=== PATIENT | female | born 1955 | race Caucasian/White ===

== ENCOUNTER 2018-08-11 09:03 | Outpatient (REF) | payer BC, SELFPAY ==
[2018-08-11 18:47] LABS: CREATININE 0.89 mg/dL (0.55-1.02)
== END 2018-08-11 09:23 ==
LOC: NCHCN 09:03
PROVIDERS: PCP Physician Assistant Medical; Visit Provider Nurse Practitioner Family
DX: Z01.818 Encounter for other preprocedural examination (principal)
CPT/HCPCS: 82565

== ENCOUNTER 2019-02-14 12:47 | Outpatient (REF) | payer BC, SELFPAY ==
[2019-02-14 19:30] LABS: ALT 33 U/L (12-78); AST 20 U/L (15-37); TSH 1.98 uIU/mL (0.358-3.74)
== END 2019-02-14 13:07 ==
LOC: NCHCN 12:47
PROVIDERS: PCP Physician Assistant Medical; Visit Provider Nurse Practitioner Family
DX: E03.9 Hypothyroidism, unspecified (principal); E78.5 Hyperlipidemia, unspecified
CPT/HCPCS: 84443; 84450; 84460

== ENCOUNTER 2019-02-16 09:46 | Outpatient (REF) | payer BC, SELFPAY ==
--- NOTE | 2019-02-16 08:45 | PAPFT_PTH ---
PATIENT: Amelie Devries LOC: [facility] U#:[id number] AGE/SX: 63/F ROOM: RE02/16/[address]: Charla Murillo NP : 1955 BED: DIS: 02/16/2019 SPEC #: [id number] RECD: 02/16/19 12:54 STATUS: NAHOMI PAULA #: [id number] GEORGE: 02/16/19 08:[address]: Charla Murillo NP DEPT: [facility] Cytology RECD BY: Kenyetta Ramírez ENTERED: 02/16/19 12:54 SP TYPE: PAPFT OTHR DR: Alicia Valentin Tissues: 1 - CX/ENDOCX FOR PAP SMEARS Procedures: PAP THIN PREP/UVM Screening HPV DNA PROBE Comments: [id number]
== END 2019-02-16 10:06 ==
LOC: LBN 09:46
PROVIDERS: PCP Physician Assistant Medical; Visit Provider Nurse Practitioner Women's Health
DX: Z12.4 Encounter for screening for malignant neoplasm of cervix (principal); Z11.51 Encounter for screening for human papillomavirus (HPV)
CPT/HCPCS: 88142; 87624

== ENCOUNTER 2019-03-09 00:25 | Outpatient (CLI) | payer BC, SELFPAY ==
--- NOTE | 2019-03-09 13:00 | DI.MAMMO_ITS ---
SYMPTOMS/DIAGNOSIS: SCREENING, Z12.31 MAMMOGRAMS: Mammograms were interpreted according to the usual protocol including computer analysis with CAD system, tomosynthesis and C view imaging. The breast tissue is of moderate radiodensity. There is no evidence of a mass. There are no suspicious calcifications and there has been no significant interval change when compared with prior images. SUMMARY: No evidence of malignancy, category 1. Yearly screening mammography is recommended. Breast density category B. SA ASSESSMENT OF FINDINGS: Negative. Category 1. Patient will receive a letter notifying them of these results. BI-RADS category B. There are scattered areas of fibroglandular density.
== END 2019-03-09 00:45 ==
PROVIDERS: PCP Physician Assistant Medical; Visit Provider Nurse Practitioner Women's Health
DX: Z12.31 Encounter for screening mammogram for malignant neoplasm of breast (principal)
CPT/HCPCS: 77063; 77067

== ENCOUNTER 2019-08-17 10:13 | Outpatient (REF) | payer MEDICARE, SELFPAY ==
[2019-08-17 19:23] LABS: ALT 132 U/L (14-59); AST 65 U/L (15-37)
[2019-08-17 19:54] LABS: Calculated LDL 85 mg/dL; Cholesterol 158 mg/dL (50-200); HDL Cholesterol 56 mg/dL (40-60); Triglyceride 89 mg/dL (30-150)
== END 2019-08-17 10:33 ==
LOC: NCHCO 10:13
PROVIDERS: PCP Physician Assistant Medical; Visit Provider Nurse Practitioner Family
DX: E78.5 Hyperlipidemia, unspecified (principal)
CPT/HCPCS: 80061; 84450; 84460

== ENCOUNTER 2021-04-01 17:02 | Outpatient (REF) | payer OTHER, SELFPAY ==
[2021-04-01 18:46] LABS: Hemoglobin A1C 5.8 % (<5.7)
[2021-04-01 18:52] LABS: ALT 45 U/L (14-59); AST 22 U/L (15-37); Albumin 3.8 g/dL (3.4-5.0); Alkaline Phosphatase 118 U/L (46-116); Anion Gap 9.7 mmol/L (3-11); BUN 15 mg/dL (7-18); Bilirubin, Total 0.3 mg/dL (0.2-1.0); CO2 26.3 mmol/L (21.0-32.0); CREATININE 0.9 mg/dL (0.55-1.02); Calcium 8.8 mg/dL (8.5-10.1); Calculated LDL 70 mg/dL (<100); Chloride 103 mmol/L (98-107); Cholesterol 155 mg/dL (<200); Glucose 97 mg/dL (74-106); HDL Cholesterol 48 mg/dL (40-60); Potassium 4.2 mmol/L (3.5-5.1); Sodium 139 mmol/L (136-145); TSH 0.94 uIU/mL (0.36-3.74); Total Protein 7.4 g/dL (6.4-8.2); Triglyceride 189 mg/dL (<150)
== END 2021-04-01 17:03 | disposition home or self-care (01) ==
LOC: NCHCN 17:02
PROVIDERS: Visit Provider Nurse Practitioner Family
DX: E03.9 Hypothyroidism, unspecified (principal); E78.5 Hyperlipidemia, unspecified; R73.03 Prediabetes
CPT/HCPCS: 80053; 80061; 83036; 84443

== ENCOUNTER 2022-04-07 18:29 | Outpatient (REF) | payer OTHER, SELFPAY ==
[2022-04-07 19:42] LABS: BUN 16 mg/dL (7-18); CREATININE 0.8 mg/dL (0.55-1.02); Calcium 9.1 mg/dL (8.5-10.1); Chloride 104 mmol/L (98-107); Glucose 84 mg/dL (74-106); Potassium 4.1 mmol/L (3.5-5.1); Sodium 138 mmol/L (136-145); TSH (W/Ref FT4) 2.09 uIU/mL (0.36-3.74)
== END 2022-04-07 18:30 | disposition home or self-care (01) ==
LOC: NCHCN 18:29
PROVIDERS: Visit Provider Nurse Practitioner Family
DX: E03.9 Hypothyroidism, unspecified (principal); E78.5 Hyperlipidemia, unspecified
CPT/HCPCS: 80048; 84443

== ENCOUNTER → 2022-04-16 01:20 | Outpatient (CLI) | payer OTHER, SELFPAY ==
--- NOTE | 2022-04-16 08:15 | DI.MAMMO_ITS ---
Exam(s) MAMMO SCREENING EXAM: MAMMO SCREENING CLINICAL HISTORY: screening,z12.39. TECHNIQUE: Bilateral full field digital CC and MLO mammographic images were obtained with 3D tomosyn thesis and utilizing computer aided detection (CAD). COMPARISON: Prior mammograms were reviewed, the most recent being February 2019. FINDINGS: There has been no significant change in the appearance and distribution of the fibroglandular tissue Asymmetric tissue in the left breast is unchanged from prior studies There are no new spiculated masses nor malignant appearing microcalcification groups. There is no significant architectural distortion nor skin thickening-retraction. IMPRESSION: No radiographic evidence of malignancy. BI-RADS Category 1 - Negative Breast Density - Category B - Scattered areas of fibroglandular density Breast density Category C or D implies that the patient has dense breast tissue. Dense breast tissue can make it harder to find cancer on a mammogram. Dense breast tissue is also associated with an incr eased risk of breast cancer. This information about the result of the mammogram report was provided to the patient to raise their awareness. Use this report when you speak with the patient about their risks for breast cancer, which includes their family history. At that time, you may recommend additional screening tests (Ultrasoun d or MRI) as these tests may add significant information. A negative radiographic report should not delay biopsy if a dominant or clinically suspicious mass is present. Up to ten percent of cancers are not identified on mammography. A negative report may reinforce clinical impression. Adenosis and dense breasts may obscure an underlying neoplasm. False positive reports average 6 to 10%. Patient will receive a letter notifying them of these results.
--- NOTE | 2022-04-16 08:15 | DI.US_ITS ---
Exam(s) US PELVIS TRANSVAGINAL EXAM: US PELVIS TRANSVAGINAL CLINICAL HISTORY: R sided pelvic pain,r10.2 TECHNIQUE: Ultrasound of the pelvis was performed both transabdominal and transvaginal. COMPARISON: US PELVIS TRANSVAG from 08/21/2014 FINDINGS: UTERUS: Retroflexed Measures 6 cm length x 4 cm AP x 4 cm wide. There are no uterine fibroids. Endometrial thickness measures 11.3 mm. This is abnormally thickened for this age group. There also appears to be possible 5 by millimeter polyp the endometrial cavity mid level. There is no fluid in the endometrial canal. CERVIX: There are no obvious nabothian cysts. RIGHT OVARY: Not able to be identified LEFT OVARY: Also not able to be identified CUL-DE-SAC: No free fluid evident. IMPRESSION: 1. Endometrium appears thickened this age group and contain possible polyp. Close follow-up recommen ded. 2. No abnormal adnexal findings. Both ovaries were not able to be identified on today's study 3. No free fluid evident in the adnexal regions and cul-de-sac. DATA REPOSITORY:
== END ==
PROVIDERS: Visit Provider Nurse Practitioner Women's Health
DX: Z12.31 Encounter for screening mammogram for malignant neoplasm of breast (principal); R10.2 Pelvic and perineal pain; R92.8 Other abnormal and inconclusive findings on diagnostic imaging of breast
CPT/HCPCS: 77063; 77067; 76830; 76856

== ENCOUNTER 2022-05-26 11:30 | Outpatient (REF) | payer OTHER, SELFPAY ==
--- NOTE | 2022-05-26 10:40 | ENDOMET_PTH ---
PATIENT: Amelie Devries LOC: [facility] U#:[id number] AGE/SX: 66/F ROOM: RE05/26/[address]: Hanh Molina DO : 1955 BED: DIS: 05/26/2022 SPEC #: [id number] RECD: 05/26/22 12:10 STATUS: SOUT REQ #: [id number] GEORGE: 05/26/22 10:[address]: Hanh Molina DEPT: Surgical Specimen RECD BY: Kenyetta Ramírez ENTERED: 05/26/22 12:10 SP TYPE: Endomet OTHR DR: Unknown,Unknown Tissues: 1 - ENDOMETRIUM BX/CURRETTE Procedures: GROSS AND MICRO LEVEL 4 Comments: [id number]
--- OUTSIDE RECORDS SUMMARY | 2022-05-26 11:33 | XMS_ITS | Encounter Summary ---
:1955 Author Organization [facility] Address [address] [place] [address] Care Team Providers Name Role Phone Gudelia Valentin PA-C Primary Care Provider Encounter Details Date Type Department Care Team Description 11/21/2014 Results Only [facility] Sabrina Singleton MD [phone] [place] [address] Social History Tobacco Use Types Packs/Day Years Used Date Never Assessed Sex Assigned at Date Recorded Not on file documented as of this encounter Plan of Treatment Not on filedocumented as of this encounter Procedures Procedure Name Priority Date/Time Associated Diagnosis Comme nts SURGICAL PATHOLOGY Routine 11/21/2014 18:26 Resul ts for this EST procedure are i n the results section. documented in this encounter Results SURGICAL PATHOLOGY (11/21/2014 18:26 EST) Pathology SURGICAL PATHOLOGY REPORT [facility] MEDICAL Report: Reports generated via electronic interface conta in original data; [facility] however they are lacking the format of the original re port. SERVICES Caution should be taken when reading/interpreting unfo rmatted reports. Name: ? SARAH STONE ? Accession #: ? [id number] ? : ? 1955 (Age: 59) ??F ? Collect Date: ? 11/21/2014 ? Location: ? [facility] ? Receive Date: ? 015 ? Provider: SABRINA SINGLETON MD Copy to: GUDELIA MARKS ? Final Pathologic Diagnosis: ENDOMETRIUM, POLYPECTOMY AND CURETTAGE: - Fragments of endometrial polyp, atrophic type. ??See comment. - Fragments of myometrium with features compatib le with submucosal leiomyoma. - Strips of inactive endometrium with tubal metaplasia . Comment: ? Coke Worker sectio ns of this case were reviewed at the intradepartmental consultation conference. ??No cytologic atypia is seen . Document reviewed and electronically signed by: HANDY PEDROZA MD Report ??Date: 11/26/2014 15:59 By the signature above, the attending physician certif ies that he/she has personally conducted a gross and/or microscopic examin ation of the described specimens and rendered or confirmed the above diagnosi s. Specimen(s) Received: Endometrial polyp and curettings Clinical History: Postmenopausal spotting, thickened EMS, scant atrophic EM on EM bx; EM polyp visualized on hysteroscopy; appeared irregular, bubbly , not smooth walled, highly vascular Gross Description: ? Received in formalin labelled with proper patient identification (initials H, M) and endometrial polyp and curettings is an aggregate of clotted blood and braun-pink tissue fragment s (4.0 x 2.5 x 0.5 cm). Submitted in toto in blocks 1-5. Alix Romero 11/22/2014 08:48 AM End of Report Specimen Performing Organization Address City/State/ZIP Code Phon e Number [facility] [address] [place] [address] SERVICES documented in this encounter Visit Diagnoses Not on filedocumented in this encounter Care Teams Hydraulics Engineer Relationship Specialty Start Date End Date Gudelia Valentin PA-C PCP - General 09/05/14 documented as of this encounter
--- OUTSIDE RECORDS SUMMARY | 2022-05-26 11:33 | XMS_ITS | Encounter Summary ---
:1955 Author Organization [facility] Address [address] [place] [address] Care Team Providers Name Role Phone Unavailable Primary Care Provider Unavailable Encounter Details Date Type Department Care Team Description 08/30/2014 Hospital Encounter [facility] Unknown, Provider, [facility] 0 [facility] [phone] [place] [address] (Work) [phone] Social History Tobacco Use Types Packs/Day Years Used Date Never Assessed Sex Assigned at Date Recorded Not on file documented as of this encounter Discharge Disposition Disposition Code Departure Means Destination Home or Self [facility]sp documented in this encounter Plan of Treatment Not on filedocumented as of this encounter Visit Diagnoses Not on filedocumented in this encounter
--- OUTSIDE RECORDS SUMMARY | 2022-05-26 11:33 | XMS_ITS | Encounter Summary ---
:1955 Author Organization [facility] Address [address] [place] [address] Care Team Providers Name Role Phone Ender Noble Primary Care Provider Encounter Details Date Type Department Care Team Description 08/13/2015 Surgery Gastroenterology at [facility] Julian Palacio, COLONOSCOPY FLEXIBLE, [facility] Mona valdes MD WITH BX (WRVU 3.66) [place] [address] [facility] [phone] GASTROENTEROLOGY DEPT. [place], [place] [address] Social History Tobacco Use Types Packs/Day Years Used Date Former Smoker Smokeless Tobacco: Never Used Alcohol Use Standard Drinks/Week Comments Yes 3 (1 standard drink = 0.6 oz pure alcoho l) Sex Assigned at Date Recorded Not on file documented as of this encounter Last Filed Vital Signs Vital Sign Reading Time Taken Comments Blood Pressure 100/56 08/13/2015 8:26 AM EDT Pulse 66 08/13/2015 8:26 AM EDT Temperature 36.4 ??C (97.5 ??F) 08/13/2015 7:18 AM EDT Respiratory Rate 16 08/13/2015 8:26 AM EDT Oxygen Saturation 93% 08/13/2015 8:26 AM EDT Inhaled Oxygen Concentration - - Weight 83.9 kg (185 lb) 08/13/2015 7:18 AM EDT Height - - Body Mass Index - - documented in this encounter Discharge Instructions Discharge InstructionsNatacha Land RN - 08/13/2015 8:27 AM EDT Colonoscopy What to expect after the procedure You may feel a little more gassy or bloated than usual. This is normal. You should expect the return of normal bowel function in the 2 to 3 days. Activity Because of the sedation that you received your judgement and reaction time are effected ?? Go home and rest quietly for the remainder of the day. You may resume your normal activities tomorrow. ?? Change from one position to the next slowly. You may lose your balance unexpectedly ?? Be careful on stairs, as you may be unsteady on your feet FOR THE NEXT 24 HRS ?? DO NOT DRIVE OR OPERATE ANY MACHINERY ?? DO NOT DRINK ALCOHOLIC BEVERAGES ?? DO NOT SIGN LEGAL DOCUMENTS ?? If you are a smoker: DO NOT SMOKE WHILE YOU ARE ALONE Diet ?? Start by eating small portions of foods that ordinarily will not upset your stomach . Avoid gas producing foods for the next few days ?? Be gentle with what you choose to start with ?? Drink plenty of fluids ( unless your doctor has told you not to). IV SITE-- slight redness, or tenderness is normal. You can use warm compresses if you become concerned. If the tenderness +/or redness increases or foul drainage and a red streak occurs, please contact your PCP immediately When shoud you call for help? Call 911 anytime you think you may need emergency care. For example If you pass out ( loss of consciousness) If you pass maroon or bloody stools If you have severe belly pain Call your doctor now or seek immediate medical care If your stools are black and tarlike If your stools have streaks of blood, but you did not have a biopsy or any polyps removed If you have belly pain, or your belly is swollen and firm If you vomit If you have a fever If you are very dizzy Watch closely for changes in your health, and be sure to contact your doctor if you have any problems Your doctor will let you know when you will need your next colonoscopy. The results of your test andyour risk for colorectal cancer will help your doctor decide how often you need to be checked. Wednesday-Wednesday Same Day Endo [phone] 7a-8p Otherwise contact [phone] and ask to speak to the spinner open end network operations manager Follow up care is a mcintyre part of your treatment and safety. Be sure to make and go to all appointments, and call your doctor if you are having problems. Discharge instructions reviewed with patient who expresses understanding Patient InstructionsJulian Palacio MD - 08/13/2015 8:16 AM EDT Please see Recommendations in the Provation procedure report which is documented in the procedural note in E-DH. documented in this encounter Medications at Time of Discharge Medication Sig Dispensed Refills Start Date End Date levothyroxine Take 88 mcg by mouth 0 (SYNTHROID) 88 mcg daily. Indications: TabletIndications: Hypothyroidism hypothyroidism aspirin 81 mg Tablet, Take 81 mg by mouth 0 ChewableIndications: daily. Indications: prevention of transient Prevention of Transient ischemic attack Ischemic Attacks ibuprofen (ADVIL;MOTRIN) Take 600 mg by mouth 0 200 mg every 6 hours as needed TabletIndications: pain for Pain. Indications: Pain SERTRALINE HCL (ZOLOFT 0 09/25/2009 ORAL) multivitamin capsule 0 09/25/2009 CALCIUM CITRATE ORAL 0 09/25/2009 documented as of this encounter H&P Notes Julian Palacio MD - 08/13/2015 7:51 AM EDT Gastroenterology and Hepatology Pre-Procedure History and Physical Exam Procedure: Colonoscopy: Indication: screening There is no problem list on file for this patient. EXAM: HEENT: Airway examined, oropharynx clear Mallampati Score: I (soft palate, uvula, fauces, tonsillar pillars visible) LUNGS: Clear to auscultation HEART: Regular rate and rhythm, normal S1, S2 ABDOMEN: Normal bowel sounds, soft, non tender, non distended, A/P Proceed with the planned endoscopic procedure. ASA 1 - Normal health patient Sedation Plan: moderate (conscious sedation) Risks and benefits of the procedure explained to the patient. Consent signed. documented in this encounter Plan of Treatment Not on filedocumented as of this encounter Procedures Procedure Name Priority Date/Time Associated Comments Diagnosis SURGICAL PATHOLOGY Routine 08/13/2015 8:18 AM Res ults for this REPORT EDT procedure are i n the results section. SPECIMEN TO PATHOLOGY Routine 08/13/2015 8:18 AM Results for this EDT procedure are i n the results section. COLONOSCOPY FLEXIBLE, 08/13/2015 7:56 AM Screening WITH BX (WRVU 3.66) EDT POCT GLUCOSE Routine 08/13/2015 7:38 AM Results f or this EDT procedure are i n the results section. COLONOSCOPY Routine 08/13/2015 7:17 AM Results f or this EDT procedure are i n the results section. documented in this encounter Results Surgical Pathology Report (08/13/2015 8:18 AM EDT) [facility] Method Time Signature Surgical The signing pathologist has (i) examined the relevant preparation(s) for the [facility] Pathology specimen(s) and (ii) rendered or confirmed the diagnosis(e s). [facility] Report Accession Number: [id number] ?Location: 4 T . ?Surgic al Pathology DIAGNOSIS A - Ileocecal valve, biopsies: - ??Ileal mucosa, negative for diagnostic abnormality. CR-0, CR-PX 08/13/15 DNT 08/15/15 Verified by: ? Real Horta MD ?Pathologist ?(Electronic Signature ) The attending pathologist whose signature appears on this re port has reviewed all diagnostic slides and has edited the gross and/ or microscopic portion of the report in jayde dering the final pathologic diagnosis. CLINICAL INFORMATION Specimen Submitted: A - Biopsies of ileocecal valve Clinical History: Nodular terminal ileum Clinical Diagnosis: Same SPECIMEN PROCESSING A - Labeled/Fixative: Biopsies of ileocecal valve, formalin. Quantity/Size: Three, ranging from 0.3-0.5 cm. Tissue Description: Soft, pink tissues. Sections/Processing: (T1) ??sns Specimen (Source) Anatomical Collection Method Collection Time Re ceived Time Location / / Volume Laterality 08/13/2015 8:18 AM EDT Julian Palacio MD PATHOLOGY/CYTOLOGY ORDERABLE S Performing Organization Address City/State/ZIP Code Phon e Number [address] [facility] Specimen to Pathology (surgical or derm) (08/13/2015 8:18 AM EDT) Specimen Anatomical Collection Method Collection Time Receive d Time (Source) Location / / Volume Laterality AP Specimen 08/13/2015 8:18 AM 201 5 8:18 EDT AM EDT Narrative CERNER MILLENNIUM - 08/13/2015 8:18 AM E DT Specimen requisition ordered. ??Separate Pathology report to follow Julian Palacio MD PATHOLOGY/CYTOLOGY ORDERABLE S Performing Organization Address City/[facility]/ZIP Code Phon e Number [address] [facility] POCT Glucose (08/13/2015 7:38 AM EDT) P athologist Signature POC Glucose 101 65 - 199 CERNER mg/dL [facility] Comment: Supplemental ranges: <140 mg/dL before meals <180 mg/dL all other times of the day Specimen Anatomical Collection Method Collection Time Receive d Time (Source) Location / / Volume Laterality Blood specimen 08/13/2015 7:38 AM 015 7:38 (specimen) EDT AM EDT Julian Palacio MD POINT OF CARE TEST ORDERABLE S Performing Organization Address City/[facility]/ZIP Code Phon e Number [address] C[facility] LOPEZENNIUM COLONOSCOPY (08/13/2015 7:17 AM EDT) Patholo gist Method Time Signature COLONOSCOPY [facility] Endoscopy Patient Name: Amelie Devries ? Procedure Date: 08/13/2015 7:17 AM ? Date of : 1955 ? Age: 60 ? Order #: [id number] ? Procedure: ? Colonoscopy Indications: ? Screening for colorectal malignant ? neoplasm Providers: ? Julian Palacio MD, Shazia menendez, ? LUCY, Clau Cordova Referring : ?SELINA Dalal Medicines: ? Midazolam 2 mg IV, Fentanyl 100 ? micrograms IV Complications: ? No immediate complications. Procedure: ? Pre-Anesthesia Assessment: ? - ASA Grade Assessment: I - A normal, ? healthy patient. ? - CV Examination: normal. ? - Mental Status Examination: alert ? and oriented. ? - Respiratory Examination: cl ear to ? auscultation. ? The procedure, indications, b enefits, ? risks and alternatives were e xplained ? to the patient. Specifically ? discussed were potential ? complications including, but not ? limited to, bleeding, perfora tion, ? infection, missing a cancer, and ? adverse medication reactions. The ? patient was placed in the lef t ? lateral decubitus position, a nd a ? digital rectal exam was perfo rmed. ? The Colonoscope was inserted in the ? anus and under direct visuali zation, ? advanced to the terminal ileu m. ? Careful inspection was made a s the ? colonoscope was withdrawn. Th e ? colonoscopy was performed wit hout ? difficulty. The patient wilber ated the ? procedure well. The quality o f the ? bowel preparation was excelle nt. ? Findings: ? The terminal ileum was somewhat nodular (probably ? normal variant). Several biopsies were obtained. ? The entire colon was normal including a retroflex ? view of the rectum. ? Impression: ?Normal colon. ? Nodular terminal ileum (proba murphy ? normal variant) Recommendation: ?- Await pathology results. ? Julian Palacio MD 08/13/2015 8:20 AM This report has been signed electronically. Number of Addenda: 0 Note Initiated On: 08/13/2015 7:17 AM Specimen (Source) Anatomical Collection Method Collection Time Re ceived Time Location / / Volume Laterality 08/13/2015 7:17 AM EDT Ender MARKS GENERAL SURGICAL ORDERABLES Performing Organization Address City/State/ZIP Code Phon e Number [facility] documented in this encounter Visit Diagnoses Not on filedocumented in this encounter Administered Medications Inactive Administered Medications - up to 3 most recent administrations Medication Order MAR Action Action Date Dose Rate Site fentaNYL 50 mcg/mL multi-dose Given 08/13/2015 8:00 AM EDT 100 m cg injection ONCE PRN, Starting on Wed08/13/15 at 0800, Until Wed08/13/15 at 0916, Intra-Operative (Intra-Procedure), Routine lactated ringers infusion New Bag 08/13/2015 7:49 AM EDT 100 mL/hr 100 mL/hr 100 mL/hr, Intravenous, CONTINUOUS, Starting on Wed08/13/15 at 0745, Until Wed08/13/15 at 0916, Endoscopy (Day of Procedure) midazolam (PF) (VERSED) 1 mg/mL multi-dose Given 08/13/2015 8:00 AM EDT 2 mg injection ONCE PRN, Starting on Wed08/13/15 at 0800, Until Wed08/13/15 at 0916, Intra-Operative (Intra-Procedure), Routine documented in this encounter Active and Recently Administered Medications Times are shown in EDT. Continuous Medication Order 08/11/2015 08/12/2015 08/13/2015 lactated ringers infusion (CANCELED) 0749 (New Bag - Provider: Natacha M Emery, RN) 100 mL/hr, at 100 mL/hr, Intravenous, CO NTINUOUS, Starting Wed08/13/15 at 0745, Until Wed08/13/15 at 0916, Endo (Day of Procedure) PRN Medication Order 08/11/2015 08/12/2015 08/13/2015 fentaNYL 50 mcg/mL multi-dose injection (CANCELED) 0800 (Given - Provider: Shazia Tellez, LUCY) ONCE PRN, Starting Wed08/13/15 at 0800, Until Wed08/13/15 at 0916, Intra- Operative (Intra-Procedure), Routine midazolam (PF) (VERSED) 1 mg/mL multi-dose injection (CANCELED) 0800 (Given - Provider: Shazia Tellez, LUCY) ONCE PRN, Starting Wed08/13/15 at 0800, Until Wed08/13/15 at 0916, Intra- Operative (Intra-Procedure), Routine documented in this encounter Care Teams Airport Maintenance Laborer Relationship Specialty Start Date End Date Ender Noble PA PCP - General 10/07/10 11/14/[address] [place] [address] documented as of this encounter
--- OUTSIDE RECORDS SUMMARY | 2022-05-26 11:33 | XMS_ITS | Encounter Summary ---
:1955 Author Organization [facility] Address [address] [place] [address] Care Team Providers Name Role Phone Unavailable Primary Care Provider Unavailable Encounter Details Date Type Department Care Team Description 06/18/2009 Orders Only [facility] Donato Gann, CATARINO Services - Imelda Montes [address] [address] Social History Tobacco Use Types Packs/Day Years Used Date Never Assessed Sex Assigned at Date Recorded Not on file documented as of this encounter Plan of Treatment Not on filedocumented as of this encounter Procedures Procedure Name Priority Date/Time Associated Comments Diagnosis HPV DETECTION, HIGH Routine 06/18/2009 10:00 Resu lts for this RISK TYPES EDT procedure are i n the results section. CYTOPATHOLOGY Routine 06/18/2009 0:00 Results for this EDT procedure are i n the results section. documented in this encounter Results HUMAN PAPILLOMA VIRUS DNA TEST (06/18/2009 10:00 EDT) Specimen Description Cervix, ThinPrep [facility] vial Result Negative for HPV [facility] types 16, 18, 31, 33, 35, 39, 45, 51, 52, 56, 58, 59, and 68. Report Status Final [facility] 06/26/2009 Specimen Performing Organization Address City/State/ZIP Code Phon e Number [facility] [address] [place] [address] SERVICES [facility] [address] [place] [address] CYTOPATHOLOGY (06/18/2009 0:00 EDT) Pathology Report: CYTOPATHOLOGY REPORT ? [facility] ? [facility] Reports generated via electr onic interface contain original data; ? however they are lacking the format of the original report. ? Caution should be taken when reading/interpreting unformatted reports. ? Name: ? SARAH STONE ? Accession #: ? [id number] ? : ? 1955 (Age: 53) ??F ?Collect Date: ? 06/18/2009 ? Location: ? [facility] ? Receive Date: ? 06/18/2009 ? Provider: ?DONA M RO WLETT GLASS FRAME FITTER ? Copy to: ? Specimen/Source: ? Pap Test, Cervix/Endocervix, ThinPrep Imaging System ? with manual evaluation ? Last Menstrual Period: ? 02/05 ? Hormonal/Contraceptive Statu s: ? Tubal ligation ? Other: ? HPVDX - HPV testing requeste d regardless of diagnosis on current ThinPrep Pap ?? test. ? SPECIMEN ADEQUACY ? Satisfactory for Eval uation ? - transformation zone compon ent present ? GENERAL CATEGORIZATION ? Negative for Intraepi thelial Lesion or Malignancy ? Document reviewed and electr onically signed by: ? Renee Verville,CT(ASCP) ? Report Date: ??08/06/ 2009 09:04 ? End of Report ? Specimen Performing Organization Address City/State/ZIP Code Phon e Number [facility] [address] [place] [address] SERVICES [facility] [address] [place] [address] documented in this encounter Visit Diagnoses Not on filedocumented in this encounter
--- OUTSIDE RECORDS SUMMARY | 2022-05-26 11:33 | XMS_ITS | Encounter Summary ---
:1955 Author Organization [facility] [place] [address] Care Team Providers Name Role Phone Ender Noble Primary Care Provider Encounter Details Date Type Department Care Team Description 08/13/2015 Hospital Encounter Gastroenterology at [facility] Benny Slaughter MD [facility] [place] [address] [facility] Julian Real MD [facility] [place] [address] [place] [address] Social History Tobacco Use Types Packs/Day Years [...] to be checked. Wednesday-Wednesday Same Day Endo [phone] Otherwise contact [phone] and ask to speak to the clay artisan pci security consultant Follow up care is a mcintyre part [...] Surgical Pathology Report (08/13/2015 8:18 AM EDT) [facility] Method Time Signature Surgical The signing pathologist has (i) examined the relevant preparation(s) for the [facility] Pathology specimen(s) and (ii) rendered or confirmed the diagnosis(e s). [facility] Report Accession Number: [id number] ?Location: 4 T . ?Surgic al Pathology [...] MD PATHOLOGY/CYTOLOGY ORDERABLE S Performing Organization Address City/[facility]/ZIP [place] [address] CERNER MILLENNIUM Specimen to Pathology (surgical or derm) (08/13/2015 8:18 AM EDT) Specimen Anatomical Collection Method Collection Time Receive d Time (Source) Location / / Volume Laterality AP Specimen 08/13/2015 8:18 AM 201 5 8:18 EDT AM EDT Narrative CERNER MILLENNIUM - 08/13/2015 8:18 AM E DT Specimen requisition ordered. ??Separate Pathology report to follow Julian Palacio MD PATHOLOGY/CYTOLOGY ORDERABLE S Performing Organization Address City/[facility]/ZIP [place] [address] CERNER MILLENNIUM POCT Glucose (08/13/2015 7:38 AM EDT) P athologist Signature POC Glucose 101 65 - 199 CERNER mg/dL [facility] Comment: Supplemental ranges: <140 mg/dL before meals <180 mg/dL all other times of the day Specimen Anatomical Collection Method Collection Time Receive d Time (Source) Location / / Volume Laterality Blood specimen 08/13/2015 7:38 AM 015 7:38 (specimen) EDT AM EDT Julian Palacio MD POINT OF CARE TEST ORDERABLE S Performing Organization Address City/State/ZIP [place] [address] CERNER MILLENNIUM COLONOSCOPY (08/13/2015 7:17 AM EDT) Patholo gist Method Time Signature COLONOSCOPY [facility] Endoscopy Patient Name: Amelie Devries ? Procedure Date: 08/13/2015 7:17 AM ? Date of : 1955 ? Age: 60 ? Order #: [id number] ? Procedure: ? Colonoscopy Indications: ? Screening [...] withdrawn. Th e ? colonoscopy was performed ally orosco ? difficulty. The patient wilber ated the [...] MAR Action Action Date Dose Rate Site lactated ringers infusion New Bag 08/13/2015 7:49 AM EDT 100 mL/hr 100 mL/hr 100 mL/hr, Intravenous, CONTINUOUS, Starting on Wed08/13/15 at 0745, Until Wed08/13/15 at 0916, Endoscopy (Day of Procedure) documented in this encounter Active and Recently Administered Medications Times are shown in EDT. Continuous Medication Order 08/11/2015 08/12/2015 08/13/2015 lactated ringers infusion (CANCELED) 0749 (New Bag - Provider: Natacha Land RN) 100 mL/hr, at 100 mL/hr, Intravenous, CO NTINUOUS, Starting e 08/13/15 at 0745, Until Wed08/13/15 at 0916, Endo (Day of Procedure) PRN Medication Order 08/11/2015 08/12/2015 08/13/2015 fentaNYL 50 mcg/mL multi-dose injection (CANCELED) 0800 (Given - Provider: Shazia L Fadden, RN) ONCE PRN, Starting Wed08/13/15 at 0800, Until Wed08/13/15 at 0916, Intra- Operative (Intra-Procedure), Routine midazolam (PF) (VERSED) 1 mg/mL multi-dose injection (CANCELED) 0800 (Given - Provider: Shazia Tellez RN) ONCE PRN, Starting Wed08/13/15 at 0800, Until Wed08/13/15 at 0916, Intra- Operative (Intra-Procedure), Routine documented in this encounter Care Teams Electric Stove Installer Relationship Specialty Start Date End Date Ender Noble PA PCP - General 10/07/10 11/14/[address] [place] [id number] documented as of this encounter
--- OUTSIDE RECORDS SUMMARY | 2022-05-26 11:33 | XMS_ITS | Encounter Summary ---
:1955 Author Organization [facility] Address [address] [place] [address] Care Team Providers Name Role Phone Alicia Valentin PA-C Primary Care Provider Encounter Details Date Type Department Care Team Description 01/07/2017 Results Only [facility] Sabrina Singleton MD [phone] [place] [address] Social History Tobacco Use Types Packs/Day Years Used Date Never Assessed Sex Assigned at Date Recorded Not on file documented as of this encounter Plan of Treatment Not on filedocumented as of this encounter Procedures Procedure Name Priority Date/Time Associated Diagnosis Comme [facility] SURGICAL PATHOLOGY Routine 01/07/2017 9:02 EST Re sults for this procedure are i n the results section. documented in this encounter Results SURGICAL PATHOLOGY (01/07/2017 9:02 EST) Pathology Report: SURGICAL PATHOLOGY REPORT [facility] Reports generated via electronic interface conta in original data; [facility] however they are lacking the format of the original re port. SERVICES Caution should be taken when reading/interpreting unfo rmatted reports. Name: ? SARAH STONE ? Accession #: ? [id number] ? : ? 1955 (Age: [age]) ??F ? Collect Date: ? 01/07/2017 ? Location: ? [facility] ? Receive Date: ? 01/08/20 17 ? Provider: SABRINA SINGLETON MD Copy to: RICKI GARCIA SCHOOL CUSTODIAN ? Final Pathologic Diagnosis: SKIN OF BREAST, LEFT LOWER, JUST BELOW AREOLA, BIOPSY: - Superficial portion of skin with dermal inflammation . ??See comment. Comment: Numerous sections of the biopsy were reviewed. ? ?Near the base of the biopsy, toward one edge, there is dermal hypercellularity cons isting primarily of chronic inflammation. ??Rare multinucleate giant cells are present. ??No foreign material is identified. ??The inflammation is not pres ent on the deepest sections. ??The feature are relatively non-specific. ??Inflammation secondary to a folliculitis or ruptured follicle is a consideration. ??However, a specific diagnosis is precluded by the superficia l nature of the biopsy. (Dr. Trejo)/[facility] Microscopic Description: Sections consist of an irreg ular superficial portion of skin to the superficial reticular dermis. ??The epid ermis is generally unremarkable. ??Near the base of the biopsy, toward one edge, there is hypercellularity within the dermis. ??The hypercellularity includes sp indle cells in addition to inflammatory cells. ??The latter appear to be primaril y lymphocytes, histiocytes, and a few plasma cells. Rare multinucleate giant cells are present. ??Ad ditional deeper sections show similar features. (Dr. Trejo)/mpl Document reviewed and electronically signed by: CHRIS TREJO MD Report ??Date: 01/11/2017 17:33 By the signature above, the attending physician certif ies that he/she has personally conducted a gross and/or microscopic examin ation of the described specimens and rendered or confirmed the above diagnosi s. Specimen(s) Received: Skin punch biopsy Clinical History: Persistent erythematous area on lower L breast just be low areola Gross Description: ? Received in formalin labelled with proper patient identification (initials H, M) and L breast tissue biopsy is a shave bi opsy of braun-white skin (0.4 x 0.2 x 0.1 cm). There is a central circul ar braun-pink papule that measures 0.1 x 0.1 x less than 0.1 cm. The specimen is submitted inta ct in 1. Yudy Chavarria 01/08/2017 11:03 AM End of Report Specimen Performing Organization Address City/State/ZIP Code Phon e Number [facility] [address] [place] [address] SERVICES documented in this encounter Visit Diagnoses Not on filedocumented in this encounter Care Teams Medart Operator Relationship Specialty Start Date End Date Alicia Valentin PA-C PCP - General 09/05/14 documented as of this encounter
--- OUTSIDE RECORDS SUMMARY | 2022-05-26 11:33 | XMS_ITS | Encounter Summary ---
:1955 Author Organization [facility] Address [address] [place] [address] Care Team Providers Name Role Phone Unavailable Primary Care Provider Unavailable Encounter Details Date Type Department Care Team Description 10/13/2001 Results Only [facility] - Merlene Yost NP conversion [address] [place] [address] Social History Tobacco Use Types Packs/Day Years Used Date Never Assessed Sex Assigned at Date Recorded Not on file documented as of this encounter Plan of Treatment Not on filedocumented as of this encounter Procedures Procedure Name Priority Date/Time Associated Diagnosis Comme [facility] CYTOPATHOLOGY Routine 10/13/2001 0:00 EST Results for this procedure are i n the results section . documented in this encounter Results CYTOPATHOLOGY (10/13/2001 0:00 EST) Pathology Report: CYTOPATHOLOGY REPORT [facility] Reports generated via electronic interface contain lulu ginal data; however they are lacking the format of the original re port. Caution should be taken when reading/interpreting unfo rmatted reports. Name: ? SARAH STONE ? Accession #: ? [id number] : ? 1955 (Age: 46) ??F ?Collect Date: ? 09/16 Location: ? [facility] ? Receive Date : ? 10/17/2001 Provider: ?MERLENE GRANADO SURGICAL ONCOLOGIST Copy to: ? Specimen/Source: ?ThinPrep Pap Test, Cervix/ Endocervix Last Menstrual Period: ? Other: ? Additional clinical information: Lichen sclerosis and atrophy. ? SPECIMEN ADEQUACY ? Satisfactory for evaluation. GENERAL CATEGORIZATION ? Within Normal Limits ? Document reviewed and electronically signed by: ? CAROL Mcrae(ASCP) ? Report Date: ??10/20/2001 07:46 End of Report Specimen Performing Organization Address City/State/ZIP Code Phon e Number [facility] [address] [place] [phone] SERVICES [facility] [address] [place] [address] documented in this encounter Visit Diagnoses Not on filedocumented in this encounter
--- OUTSIDE RECORDS SUMMARY | 2022-05-26 11:33 | XMS_ITS | Encounter Summary ---
:1955 Author Organization [facility] Address [address] [place] [address] Care Team Providers Name Role Phone Unavailable Primary Care Provider Unavailable Encounter Details Date Type Department Care Team Description 03/19/2004 Results Only [facility] - Merlene Yost NP conversion [address] [place] [address] Social History Tobacco Use Types Packs/Day Years Used Date Never Assessed Sex Assigned at Date Recorded Not on file documented as of this encounter Plan of Treatment Not on filedocumented as of this encounter Procedures Procedure Name Priority Date/Time Associated Diagnosis Comme nts CYTOPATHOLOGY Routine 03/19/2004 0:00 EDT Results for this procedure are i n the results section . documented in this encounter Results CYTOPATHOLOGY (03/19/2004 0:00 EDT) Pathology Report: CYTOPATHOLOGY REPORT [facility] Reports generated via electronic interface contain lulu ginal data; however they are lacking the format of the original re port. Caution should be taken when reading/interpreting unfo rmatted reports. Name: ? SARAH STONE ? Accession #: ? [id number] : ? 1955 (Age: 48) ??F ?Collect Date: ? 03/2004 Location: ? [facility] ? Receive Date : ? 03/20/2004 Provider: ?MERLENE GRANADO THREAD TRIMMER Copy to: ? Specimen/Source: ?ThinPrep Pap Test, Cervix/ Endocervix Last Menstrual Period: ? 07/18 Other: ? Additional clinical information: Lichen sclerosis, atr ophy ? SPECIMEN ADEQUACY ? Satisfactory for Evaluation - transformation zone component present GENERAL CATEGORIZATION ? Negative for Intraepithelial Lesion or Malignan cy ? Document reviewed and electronically signed by: ? CAROL Robles(ASCP) ? Report Date: ??03/26/2004 09:49 End of Report Specimen Performing Organization Address City/State/ZIP Code Phon e Number [facility] [address] [place] [address] SERVICES [facility] [address] [place] [address] documented in this encounter Visit Diagnoses Not on filedocumented in this encounter
--- OUTSIDE RECORDS SUMMARY | 2022-05-26 11:33 | XMS_ITS | Encounter Summary ---
:1955 Author Organization [facility] Address [address] [place] [address] Care Team Providers Name Role Phone Unavailable Primary Care Provider Unavailable Encounter Details Date Type Department Care Team Description 10/19/2002 Results Only [facility] - Merlene Yost NP conversion [address] [place] [address] Social History Tobacco Use Types Packs/Day Years Used Date Never Assessed Sex Assigned at Date Recorded Not on file documented as of this encounter Plan of Treatment Not on filedocumented as of this encounter Procedures Procedure Name Priority Date/Time Associated Diagnosis Comme [facility] CYTOPATHOLOGY Routine 10/19/2002 0:00 EST Results for this procedure are i n the results section . documented in this encounter Results CYTOPATHOLOGY (10/19/2002 0:00 EST) Pathology Report: CYTOPATHOLOGY REPORT [facility] Reports generated via electronic interface contain lulu ginal data; however they are lacking the format of the original re port. Caution should be taken when reading/interpreting unfo rmatted reports. Name: ? SARAH STONE ? Accession #: ? [id number] : ? 1955 (Age: 47) ??F ?Collect Date: ? 03/2002 Location: ? [facility] ? Receive Date : ? 10/23/2002 Provider: ?MERLENE GRANADO DRAGLINE OILER Copy to: ? Specimen/Source: ?ThinPrep Pap Test, Cervix/ Endocervix Last Menstrual Period: ? 08/29/02 Other: ? Additional clinical information: lichen sclerosis & at rophy ? SPECIMEN ADEQUACY ? Satisfactory for Evaluation - transformation zone component present - scant squamous epithelial component secondary to exc essive mucus GENERAL CATEGORIZATION ? Negative for Intraepithelial Lesion or Malignan cy ? Document reviewed and electronically signed by: ? CAROL Valenzuela(ASCP) ? Report Date: ??10/25/2002 09:15 End of Report Specimen Performing Organization Address City/State/ZIP Code Phon e Number [facility] [address] [place] [address] SERVICES [facility] [address] [place] [address] documented in this encounter Visit Diagnoses Not on filedocumented in this encounter
--- OUTSIDE RECORDS SUMMARY | 2022-05-26 11:33 | XMS_ITS | Clinical Summary ---
:1955 Author Organization [facility] [place] [address] Care Team Providers Name Role Phone Unknown Primary Care Provider Unavailable Allergies Active Allergy Reactions Severity Noted Date Comments Cat/Feline Products CIS - BR EATHING PROBLEMS Cis Free Text Allergy FEATHE RS. CIS - BREATHING PROBLEMS House Dust CIS - BREATHING PROBLEMS Mold Extracts CIS - BREATHIN G PROBLEMS Pollen Extracts CIS - BREATH ING PROBLEMS Pollen, Micronized CIS - ARAM ATHING PROBLEMS Pollen,Fermented CIS - BREAT KALEB PROBLEMS Medications Medication Sig Dispensed Refills Start Date End Date Status SERTRALINE HCL 0 09/25/2009 Acti ve (ZOLOFT ORAL) multivitamin capsule 0 09/25/2009 Active CALCIUM CITRATE ORAL 0 09/25/2009 Active levothyroxine Take 88 mcg by mouth 0 Active (SYNTHROID) 88 mcg daily. Indications: TabletIndications: Hypothyroidism hypothyroidism aspirin 81 mg Take 81 mg by mouth 0 Active Tablet, daily. Indications: ChewableIndications: Prevention of prevention of Transient Ischemic transient ischemic Attacks attack ibuprofen Take 600 mg by mouth 0 Active (ADVIL;MOTRIN) 200 every 6 hours as mg needed for Pain. TabletIndications: Indications: Pain pain Social History Tobacco Use Types Packs/Day Years Used Date Former Smoker Smokeless Tobacco: Never Used Alcohol Use Standard Drinks/Week Comments Yes 3 (1 standard drink = 0.6 oz pure alcoho l) Sex Assigned at Date Recorded Not on file Last Filed Vital Signs Vital Sign Reading [...] - - Body Mass Index - - Plan of Treatment Health Maintenance Due Date Last Done Comments Covid-19 Vaccine (#1) 1959 Hepatitis C Screening 1972 Tdap adult 1973 Tetanus vaccine 1973 Breast Cancer Share Decision Needed 1994 Breast Cancer screening 2004 Zoster vaccine (1 of 2) 2004 Advance Directive 2009 Bone Density Scan 2019 Pneumoccocal Vaccine: 65+ (1 - PCV) 2019 Influenza (Flu) vaccine (1 of 1 - 07/16/2022 Influenza standard series) Colonoscopy 08/13/2025 08/13/2015, 08/13/2015 Care Teams Grab Operator Relationship Specialty Start Date End Date Unknown PCP - General 11/15/19 None
--- OUTSIDE RECORDS SUMMARY | 2022-05-26 11:33 | XMS_ITS | Encounter Summary ---
:1955 Author Organization [facility] Address [address] [place] [address] Care Team Providers Name Role Phone Unavailable Primary Care Provider Unavailable Encounter Details Date Type Department Care Team Description 05/06/2005 Results Only [facility] - Ileana Burt od, CLINICAL RESEARCH ANALYST [address] [place] [phone] (Wo rk) Social History Tobacco Use Types Packs/Day Years Used Date Never Assessed Sex Assigned at Date Recorded Not on file documented as of this encounter Plan of Treatment Not on filedocumented as of this encounter Procedures Procedure Name Priority Date/Time Associated Diagnosis Comme nts CYTOPATHOLOGY Routine 05/06/2005 0:00 EDT Results for this procedure are i n the results section . documented in this encounter Results CYTOPATHOLOGY (05/06/2005 0:00 EDT) Pathology Report: CYTOPATHOLOGY REPORT [facility] Reports generated via electronic interface contain lulu ginal data; however they are lacking the format of the original re port. Caution should be taken when reading/interpreting unfo rmatted reports. Name: ? SARAH STONE ? Accession #: ? [id number] : ? 1955 (Age: 49) ??F ?Collect Date: ? 04/16 Location: ? [facility] ? Receive Date : ? 05/08/2005 Provider: ?ILEANA DON CLINICAL RESEARCH ANALYST Copy to: ? [facility] ?[address] ?[place], [place] [address] ? Specimen/Source: ?ThinPrep Pap Test, Cervix/ Endocervix Last Menstrual Period: ? 2003 Other: ? Additional clinical information: Lichen sclerosis, atr ophy. HPVA - HPV testing requested if ASC-US on the current ThinPrep Pap test. ? SPECIMEN ADEQUACY ? Satisfactory for Evaluation - transformation zone component present GENERAL CATEGORIZATION ? Negative for Intraepithelial Lesion or Malignan cy ? Document reviewed and electronically signed by: ? CAROL Mcrae(ASCP) ? Report Date: ??05/14/2005 09:20 End of Report Specimen Performing Organization Address City/State/ZIP Code Phon e Number [facility] [address] [place] [address] SERVICES [facility] [address] [place] [address] documented in this encounter Visit Diagnoses Not on filedocumented in this encounter
--- OUTSIDE RECORDS SUMMARY | 2022-05-26 11:33 | XMS_ITS | Clinical Summary ---
:1955 Author Organization [facility] Address [address] [place] [address] Care Team Providers Name Role Phone Alicia Valentin PA-C Primary Care Provider Social History Tobacco Use Types Packs/Day Years Used Date Never Assessed Sex Assigned at Date Recorded Not on file Plan of Treatment Health Maintenance Due Date Last Done Comments Fall Risk Screening 2019 Care Teams Industrial Relations Manager Relationship Specialty Start Date End Date Alicia Valentin PA-C PCP - General 09/05/14
--- OUTSIDE RECORDS SUMMARY | 2022-05-26 11:33 | XMS_ITS | Encounter Summary ---
:1955 Author Organization [facility] Address [address] [place] [address] Care Team Providers Name Role Phone Alicia Valentin PA-C Primary Care Provider Encounter Details Date Type Department Care Team Description 08/28/2015 Results Only [facility]- [facility] Sabrina Singleton MD [phone] [place] [address] Social History Tobacco Use Types Packs/Day Years Used Date Never Assessed Sex Assigned at Date Recorded Not on file documented as of this encounter Plan of Treatment Not on filedocumented as of this encounter Procedures Procedure Name Priority Date/Time Associated Diagnosis Comme nts PAP TEST- RESULT Routine 08/28/2015 0:00 EDT Resu lts for this ONLY procedure are i n the results section. documented in this encounter Results PAP TEST- RESULT ONLY (08/28/2015 0:00 EDT) Pathology Report: CYTOPATHOLOGY REPORT [facility] Reports generated via electronic interface contain lulu ginal data; SERVICES however they are lacking the format of the original re port. Caution should be taken when reading/interpreting unfo rmatted reports. Name: ? SARAH STONE ? Accession #: ? [id number] ? : ? 1955 (Age: [age]) ??F ?Collect Da te: ? 08/28/2015 ? Location: ? [facility] ? Receive Date: ? 015 ? Provider: SABRINA SINGLETON MD Copy to: ? Final Report SPECIMEN ADEQUACY ? Satisfactory for Evaluation - transformation zone component present GENERAL CATEGORIZATION ? Negative for Intraepithelial Lesion or Malignan cy ?? Specimen/Source: ??Pap Test, Cervix/Endocervix, ThinPr ep Imaging System with manual evaluation Document reviewed and electronically signed by: ? Evelia Waters, CT(ASCP) ? Report ??Date: 09/04/2015 10:19 HPV with Pap Test ? Date Ordered: ? 09/04/2015 ? Status: ?? Signed Out ?Date Complete: ? 09/13/2015 ? By: ??S ystem Interface ? Date Reported: ? 09/13/2015 ? Interpretation RESULT: Negative for HPV. No E6 or E7 mRNA is detected from HPV types 16,18,31,3 3,35, 39,45,51,52,56,58,59,66, and 68 by software developer intern media marisol amplification. Comments Document reviewed and electronically signed by: ? System Interface ? Report date: 09/13/2015 By the signature above, the attending physician certif ies that he/she has personally conducted a gross and/or microscopic examin ation of the described specimens and rendered or confirmed the above diagnosi s. End of Report Specimen Performing Organization Address City/State/ZIP Code Phon e Number [facility] [address] [place] [address] SERVICES documented in this encounter Visit Diagnoses Not on filedocumented in this encounter Care Teams Vertica Architect Relationship Specialty Start Date End Date Alicia Valentin, DEBRA PCP - General 09/05/14 documented as of this encounter
--- OUTSIDE RECORDS SUMMARY | 2022-05-26 11:33 | XMS_ITS | Encounter Summary ---
:1955 Author Organization [facility] Address [address] [place] [address] Care Team Providers Name Role Phone Alicia Valentin PA-C Primary Care Provider Encounter Details Date Type Department Care Team Description 04/29/2020 Lab Requisition [facility] Outr Resulting Lab, Pathology & Laboratory Provider [facility] [address] [place] [address] Social History Tobacco Use Types Packs/Day Years Used Date Never Assessed Sex Assigned at Date Recorded Not on file documented as of this encounter Plan of Treatment Not on filedocumented as of this encounter Procedures Procedure Name Priority Date/Time Associated Comments Diagnosis DO NOT ORDER Today 04/29/2020 10:35 Results for this STANDALONE - BROAD EDT procedure are in COVID TEST the results section. COVID-19 TESTING Routine 04/29/2020 10:35 Results for this EDT procedure are i n the results section. documented in this encounter Results DO NOT ORDER STANDALONE - BROAD COVID TEST (04/29/2020 10:35 EDT) COVID-19 rt-PCR NEGATIVE Negative [facility] Result Comment: LABORATORY 2019-novel Coronavirus (2019 -nCoV) not detected by the qRT-PCR assay. Consider testing for other respiratory viruses or re-collecting for 2019-nCoV testing. Note: Optimum timing for peak viral levels du ring infections caused by 20 -nCoV have not been determined. Collection of multiple specimens from the same patient may be necessary to detect the virus. Limitations Positive results are indicat hasmukh of active infection with SARS-CoV-2 but do not rule out bacterial infection or co-infection with other viruses. The agent detected may not be the definite cause of diseas e. In addition, detection of viral RNA may not indicate the presence of infectious virus or that SARS-CoV-2 is the causative agent for clinical symptoms. Negative results do not prec lude SARS-CoV-2 infection and should not be used as the sole basis for patient management decisions. Negative results must be combined with clinical observations, patient his tory, and epidemiological in formation. False negative results may also occur if amplification inhibitors are present in the specimen or if inadequate numbers of organisms are present in the specimen. Op timum specimen types and cash ing for peak viral levels during infections caused by SARS-CoV-2 have not been fully determined. Collection of multiple specimens (types and time points) from the same patient may be necessary to detect the virus. The test was validated for u se with upper respiratory specimens obtained via nasopharyngeal or oropharyngeal swabs in VTM, UTM, M4, M5, M6, saline, and MTM media. The performance of this test has not be en established for other spe cimens. Specimens collected using other FDA recommended Specimen Collection Materials listed in the FDA COVID-19 Diagnostic [employer] communication (February 08, 2020) are pr ocessed with the caveat that they were not all validated for use with this test and the result must be interpreted in this context. Furthermore, a false negative results may occur if a specimen is improperly collected, transported or handled. If the virus mutates in the RT-PCR target region, SARS-CoV-2 may not be detected or may be detected less predictably. Inhibitors or other types of interference may produce a false negative result. An interference study evaluating the effect of common cold medications was not performed. This test is not FDA-cleared but its performance characteristics were established by our CLIA-certified, CAP-accredited, high complexity laboratory in accordance with CLIA regulations, [employer] [place] an Pathologists (CAP) guidel dominique (Feb 01, 2020), and FDA guidance (Jan 13, 2020). This test is only for use un angel the Food and Drug Administration's Emergency Use Authorization. Specimen Swab - Entire nasopharynx (body structur e) Performing Organization Address City/State/ZIP Code Phon e Number [facility] [place], [place] COVID-19 TESTING (04/29/2020 10:35 EDT) COVID-19 rt-PCR NEGATIVE Negative [facility] Result Comment: LABORATORY 2019-novel Coronavirus (2019 -nCoV) not detected by the qRT-PCR assay. Consider testing for other respiratory viruses or re-collecting for 2019-nCoV testing. Note: Optimum timing for peak viral levels du ring infections caused by 20 -nCoV have not been determined. Collection of multiple specimens from the same patient may be necessary to detect the virus. Limitations Positive results are indicat hasmukh of active infection with SARS-CoV-2 but do not rule out bacterial infection or co-infection with other viruses. The agent detected may not be the definite cause of diseas e. In addition, detection of viral RNA may not indicate the presence of infectious virus or that SARS-CoV-2 is the causative agent for clinical symptoms. Negative results do not prec lude SARS-CoV-2 infection and should not be used as the sole basis for patient management decisions. Negative results must be combined with clinical observations, patient his tory, and epidemiological in formation. False negative results may also occur if amplification inhibitors are present in the specimen or if inadequate numbers of organisms are present in the specimen. Op timum specimen types and cash ing for peak viral levels during infections caused by SARS-CoV-2 have not been fully determined. Collection of multiple specimens (types and time points) from the same patient may be necessary to detect the virus. The test was validated for u with upper respiratory specimens obtained via nasopharyngeal or oropharyngeal swabs in VTM, UTM, M4, M5, M6, saline, and MTM media. The performance of this test has not be en established for other spe cimens. Specimens collected using other FDA recommended Specimen Collection Materials listed in the FDA COVID-19 [employer] communication (February 08, 2020) are pr ocessed with the caveat that they were not all validated for use with this test and the result must be interpreted in this context. Furthermore, a false negative results may occur if a specimen is improperly collected, transported or handled. If the virus mutates in the RT-PCR target region, SARS-CoV-2 may not be detected or may be detected less predictably. Inhibitors or other types of interference may produce a false negative result. An interference study evaluating the effect of common cold medications was not performed. This test is not FDA-cleared but its performance characteristics were established by our CLIA-certified, CAP-accredited, high complexity laboratory in accordance with CLIA regulations, [employer] of [facility] an Pathologists (CAP) guidel dominique (Feb 01, 2020), and FDA guidance (Jan 13, 2020). This test is only for use un angel the Food and Drug Administration's Emergency Use Authorization. Performing Lab [facility] SERVICES Specimen Swab - Entire nasopharynx (body structur e) Performing Organization Address City/State/ZIP Code Phon e Number [facility] [address] [place] [address] SERVICES [facility] [place], [place] documented in this encounter Visit Diagnoses Not on filedocumented in this encounter Care Teams Flour Broker Relationship Specialty Start Date End Date Alicia Valentin PA-C PCP - General 09/05/14 documented as of this encounter
--- OUTSIDE RECORDS SUMMARY | 2022-05-26 11:33 | XMS_ITS | Encounter Summary ---
:1955 Author Organization [facility] Address [address] [place] [address] Care Team Providers Name Role Phone Unavailable Primary Care Provider Unavailable Encounter Details Date Type Department Care Team Description 11/23/2007 Results Only [facility] - Merlene Yost NP conversion [address] [place] [address] Social History Tobacco Use Types Packs/Day Years Used Date Never Assessed Sex Assigned at Date Recorded Not on file documented as of this encounter Plan of Treatment Not on filedocumented as of this encounter Procedures Procedure Name Priority Date/Time Associated Diagnosis Comme [facility] SURGICAL PATHOLOGY Routine 11/23/2007 0:00 EST Re sults for this procedure are i n the results section. documented in this encounter Results SURGICAL PATHOLOGY (11/23/2007 0:00 EST) Pathology Report: SURGICAL PATHOLOGY REPORT [facility] Reports generated via electronic interface contain lulu ginal data; LAB however they are lacking the format of the original re port. Caution should be taken when reading/interpreting unfo rmatted reports. Name: ? SARAH STONE ? Accession #: ? [id number] ? : ? 1955 (Age: 52) ??F ? Collect Date: ? 11/23/2007 ? Location: ? [facility] ? Receive Date: ? 008 ? Provider: MERLENE GRANADO MEAT PROCESSING CENTER MANAGER Copy to: ? Final Pathologic Diagnosis: ? Endometrium, biopsy: 1. ?Endometrial polyp. ? - No cytologic atypia identified. ? 2. ?? Superficial fragments of inactive endomet rium with focal tubal metaplasia. Document reviewed and electronically signed by: REMINGTON CONTRERAS MD Report ??Date: 11/25/2007 16:51 By the signature above, the attending physician certif ies that he/she has personally conducted a gross and/or microscopic examin ation of the described specimens and rendered or confirmed the above diagnosi s. Specimen(s) Received: ? Endometrial bx Clinical History: ? Endometrial bx; thickening of end ometrial stripe in post menopausal pt; LMP: Dec 20 Gross Description: ? Received in formalin labelled [facility] and endometrial bx is 1 cc of blood tinged mucus admixed w ith fragments of red-brown tissue. ??The specimen is submitted intact in one cassette. ??(Caleb You/ [facility] End of Report Specimen Performing Organization Address City/State/ZIP Code Phon e Number [facility] [address] [place] [address] SERVICES [facility] [address] [place] [address] documented in this encounter Visit Diagnoses Not on filedocumented in this encounter
--- OUTSIDE RECORDS SUMMARY | 2022-05-26 11:33 | XMS_ITS | Encounter Summary ---
:1955 Author Organization [facility] Address [address] [place] [address] Care Team Providers Name Role Phone Unavailable Primary Care Provider Unavailable Encounter Details Date Type Department Care Team Description 08/31/2007 Results Only [facility] - Merlene Yost NP conversion [address] [place] [address] Social History Tobacco Use Types Packs/Day Years Used Date Never Assessed Sex Assigned at Date Recorded Not on file documented as of this encounter Plan of Treatment Not on filedocumented as of this encounter Procedures Procedure Name Priority Date/Time Associated Diagnosis Comme [facility] CYTOPATHOLOGY Routine 08/31/2007 0:00 EDT Results for this procedure are i n the results section . documented in this encounter Results CYTOPATHOLOGY (08/31/2007 0:00 EDT) Pathology Report: CYTOPATHOLOGY REPORT [facility] Reports generated via electronic interface contain lulu ginal data; however they are lacking the format of the original re port. Caution should be taken when reading/interpreting unfo rmatted reports. Name: ? SARAH STONE ? Accession #: ? [id number] : ? 1955 (Age: 52) ??F ?Collect Date: ? 08/15 Location: ? [facility] ? Receive Date : ? 09/01/2007 Provider: ?MERLENE GRANADO LOOSELEAF BINDER COVERER Copy to: ? Specimen/Source: ? ThinPrep Pap Test, Cervix/Endocervix, processed on [employer] Mobile ThinPrep Imaging System, with manual evaluation Last Menstrual Period: ? 12/20 Other: ? HPVA - HPV testing requested if ASC-US on the current ThinPrep Pap test. ? SPECIMEN ADEQUACY ? Satisfactory for Evaluation - transformation zone component present GENERAL CATEGORIZATION ? Negative for Intraepithelial Lesion or Malignan cy ? Document reviewed and electronically signed by: ? SUMIT SOTO MD ? Report Date: ??09/08/2007 13:58 End of Report Specimen Performing Organization Address City/State/ZIP Code Phon e Number [facility] [address] [place] [address] SERVICES [facility] [address] [place] [address] documented in this encounter Visit Diagnoses Not on filedocumented in this encounter
--- OUTSIDE RECORDS SUMMARY | 2022-05-26 11:33 | XMS_ITS | Encounter Summary ---
:1955 Author Organization [facility] Address [address] [place] [address] Care Team Providers Name Role Phone Unavailable Primary Care Provider Unavailable Encounter Details Date Type Department Care Team Description 06/08/2012 Results Only [facility] Merlene Gann NP Laboratory Services - [address] [address] Social History Tobacco Use Types Packs/Day Years Used Date Never Assessed Sex Assigned at Date Recorded Not on file documented as of this encounter Plan of Treatment Not on filedocumented as of this encounter Procedures Procedure Name Priority Date/Time Associated Diagnosis Comme nts PAP TEST- RESULT Routine 06/08/2012 0:00 EDT Resu lts for this ONLY procedure are i n the results section. documented in this encounter Results PAP TEST- RESULT ONLY (06/08/2012 0:00 EDT) Pathology Report: CYTOPATHOLOGY REPORT [facility] Reports generated via electronic interface contain lulu ginal data; however they are lacking the format of the original re port. Caution should be taken when reading/interpreting unfo rmatted reports. Name: ? SARAH STONE ? Accession #: ? [id number] : ? 1955 (Age: 56) ??F ?Collect Date: ? 05/16 Location: ? [facility] ? Receive Date : ? 06/09/2012 Provider: ?MERLENE GANN SNUBBER Copy to: ? [facility] [facility] ? [address] ?[place], [place] [address] ? Specimen/Source: ? Pap Test, Cervix/Endocervix, ThinPrep Imaging System with manual evaluation Last Menstrual Period: ? 2005 ? SPECIMEN ADEQUACY ? Satisfactory for Evaluation - transformation zone component present GENERAL CATEGORIZATION ? Negative for Intraepithelial Lesion or Malignan cy ? Document reviewed and electronically signed by: ? CAROL Mcrae(ASCP) ? Report Date: ??06/16/2012 10:10 End of Report Specimen Performing Organization Address City/State/ZIP Code Phon e Number [facility] [address] [place] [address] SERVICES [facility] [address] [place] [address] documented in this encounter Visit Diagnoses Not on filedocumented in this encounter
--- OUTSIDE RECORDS SUMMARY | 2022-05-26 11:33 | XMS_ITS | Encounter Summary ---
:1955 Author Organization [facility] Address [address] [place] [address] Care Team Providers Name Role Phone Unavailable Primary Care Provider Unavailable Encounter Details Date Type Department Care Team Description 09/16/2000 Results Only [facility] - Merlene Yost NP conversion [address] [place] [address] Social History Tobacco Use Types Packs/Day Years Used Date Never Assessed Sex Assigned at Date Recorded Not on file documented as of this encounter Plan of Treatment Not on filedocumented as of this encounter Procedures Procedure Name Priority Date/Time Associated Diagnosis Comme [facility] CYTOPATHOLOGY Routine 09/16/2000 0:00 EST Results for this procedure are i n the results section . documented in this encounter Results CYTOPATHOLOGY (09/16/2000 0:00 EST) Pathology Report: CYTOPATHOLOGY REPORT [facility] Reports generated via electronic interface contain lulu ginal data; however they are lacking the format of the original re port. Caution should be taken when reading/interpreting unfo rmatted reports. Name: ? SARAH STONE ? Accession #: ? [id number] : ? 1955 (Age: 45) ??F ?Collect Date: ? 12/1999 Location: ? [facility] ? Receive Date : ? 09/17/2000 Provider: ?MERLENE GRANADO SENIOR SHAREPOINT ARCHITECT Copy to: ? Specimen/Source: ?ThinPrep Pap Test, Cervix/ Endocervix Last Menstrual Period: ? 08/19/00 ? SPECIMEN ADEQUACY ? Satisfactory for evaluation. GENERAL CATEGORIZATION ? Within Normal Limits ? Document reviewed and electronically signed by: ? CAROL Rivera(ASCP) ? Report Date: ??09/24/2000 11:15 End of Report Specimen Performing Organization Address City/State/ZIP Code Phon e Number [facility] [address] [place] [address] SERVICES [facility] [address] [place] [address] documented in this encounter Visit Diagnoses Not on filedocumented in this encounter
--- OUTSIDE RECORDS SUMMARY | 2022-05-26 11:33 | XMS_ITS | Encounter Summary ---
:1955 Author Organization [facility] Address [address] [place] [address] Care Team Providers Name Role Phone Alicia Valentin PA-C Primary Care Provider Encounter Details Date Type Department Care Team Description 01/07/2017 Hospital Encounter [facility]- [place]elda Unknown, Provider, [facility] [address] [facility] [phone] [place] [address] (Work) [phone] Social History Tobacco Use Types Packs/Day Years Used Date Never Assessed Sex Assigned at Date Recorded Not on file documented as of this encounter Discharge Disposition Disposition Code Departure Means Destination Home or Self [facility] documented in this encounter Plan of Treatment Not on filedocumented as of this encounter Visit Diagnoses Not on filedocumented in this encounter Care Teams Laborer Relationship Specialty Start Date End Date Alicia Valentin PA-C PCP - General 09/05/14 documented as of this encounter
== END 2022-05-26 11:31 | disposition home or self-care (01) ==
LOC: LBN 11:30
PROVIDERS: Visit Provider Obstetrics & Gynecology
DX: N85.8 Other specified noninflammatory disorders of uterus (principal); N85.01 Benign endometrial hyperplasia
CPT/HCPCS: 88305

== ENCOUNTER → 2022-07-31 00:41 | Outpatient (CLI) | payer OTHER, SELFPAY ==
--- OUTSIDE RECORDS SUMMARY | 2022-07-31 00:49 | XMS_ITS | Encounter Summary ---
:[address] [facility] Address [address] [place] [address] Care Team Providers Name Role Phone Unavailable Primary Care Provider Unavailable Encounter Details Date Type Department Care Team Description 06/18/2009 Orders Only [facility] Donato Gann, SECURITY SALES CONSULTANT Services - [place] [address] [address] Social History Tobacco Use Types [...] City/State/ZIP Code Phon e Number [facility] [address] [place] [address] SERVICES [facility] [address] [place] [address] CYTOPATHOLOGY (06/18/2009 0:00 EDT) Pathology Report: CYTOPATHOLOGY REPORT ? [facility] ? LAB Reports generated via electr onic interface contain original data; ? however they are lacking the format of the original report. ? Caution should be taken when reading/interpreting unformatted reports. ? Name: ? CHASE JAYANT ? Accession #: ? [id number] ? : ? 1955 (Age: 53) ??F ?Collect Date: ? 06/18/2009 ? Location: ? [facility] ? Receive Date: ? 06/18/2009 ? Provider: ?DONA M RO WLETT SECURITY SALES CONSULTANT ? Copy to: ? Specimen/Source: ? Pap [...] City/State/ZIP Code Phon e Number [facility] [address] [place] [address] SERVICES [facility] [address] [place] [address] documented in this encounter Visit Diagnoses Not on filedocumented in this encounter
--- OUTSIDE RECORDS SUMMARY | 2022-07-31 00:49 | XMS_ITS | Encounter Summary ---
:1955 Author Organization [facility] Address [address] [place] [address] Care Team Providers Name Role Phone Unavailable Primary Care Provider Unavailable Encounter Details Date Type Department Care Team Description 08/30/2014 Hospital Encounter [facility]- [place]elda Unknown, Provider, Ildefonso Worthington MD [address] [facility] [phone] [place] [address] (Work) [phone] Social History Tobacco Use Types Packs/Day Years Used Date Never Assessed Sex Assigned at Date Recorded Not on file documented as of this encounter Discharge Disposition Disposition Code Departure Means Destination Home or Self [facility] documented in this encounter Plan of Treatment Not on filedocumented as of this encounter Visit Diagnoses Not on filedocumented in this encounter
--- OUTSIDE RECORDS SUMMARY | 2022-07-31 00:49 | XMS_ITS | Encounter Summary ---
:1955 Author Organization [facility] Address [address] [place] [address] Care Team Providers Name Role Phone Unavailable Primary Care Provider Unavailable Encounter Details Date Type Department Care Team Description 06/08/2012 Results Only [facility] Merlene Gann, [place] Laboratory Services - [address] [id number] Social History Tobacco Use Types Packs/Day Years [...] ? SARAH STONE ? Accession #: ? [id number] : ? 1955 (Age: 56) ??F ?Collect Date: ? 05/16 Location: ? [facility] ? Receive Date : ? 06/09/2012 Provider: ?MERLENE GANN COMMUNICATIONS LEAD Copy to: ? [facility] ? [address] ?[place], [place] [address] ? Specimen/Source: ? Pap Test, Cervix/Endocervix, ThinPrep [...] Organization Address City/State/ZIP Code Phon e Number [facility] [address] [place] [address] SERVICES [facility] [address] [place] [address] documented in this encounter Visit Diagnoses Not on filedocumented in this encounter
--- OUTSIDE RECORDS SUMMARY | 2022-07-31 00:49 | XMS_ITS | Encounter Summary ---
:1955 Author Organization [facility] Address [address] [place] [address] Care Team Providers Name Role Phone Unavailable Primary Care Provider Unavailable Encounter Details Date Type Department Care Team Description 07/28/2006 Results Only [facility] - Merlene Yost NP conversion [address] [place] [address] Social History Tobacco Use Types Packs/Day Years Used Date Never Assessed Sex Assigned at Date Recorded Not on file documented as of this encounter Plan of Treatment Not on filedocumented as of this encounter Procedures Procedure Name Priority Date/Time Associated Diagnosis Comme nts CYTOPATHOLOGY Routine 07/28/2006 0:00 EDT Results for this procedure are i n the results section . documented in this encounter Results CYTOPATHOLOGY (07/28/2006 0:00 EDT) Pathology Report: CYTOPATHOLOGY REPORT [facility] Reports generated via electronic interface contain lulu ginal data; however they are lacking the format of the original re port. Caution should be taken when reading/interpreting unfo rmatted reports. Name: ? SARAH STONE ? Accession #: ? [id number] : ? 1955 (Age: 51) ??F ?Collect Date: ? 07/16 Location: ? [facility] ? Receive Date : ? 07/29/2006 Provider: ?MERLENE GRANADO CHARACTER ACTOR Copy to: ? Joya First ?[facility] ?[address] ?[place], [place] [address] ? Specimen/Source: ? ThinPrep Pap Test, Cervix/Endocervix, processed on [employer] ThinPrep Imaging System, with manual evaluation Last Menstrual Period: ? Dec 2004 Other: ? Additional clinical information: Lichen sclerosis, atr ophy HPVA - HPV testing requested if ASC-US on the current ThinPrep Pap test. ? SPECIMEN ADEQUACY ? Satisfactory for Evaluation - transformation zone component present GENERAL CATEGORIZATION ? Negative for Intraepithelial Lesion or Malignan cy ? Document reviewed and electronically signed by: ? Pushpa Carter, [facility](ASCP) ? Report Date: ??08/02/2006 16:06 End of Report Specimen Performing Organization Address City/State/ZIP Code Phon e Number [facility] [address] [place] [address] SERVICES [facility] [address] [place] [address] documented in this encounter Visit Diagnoses Not on filedocumented in this encounter
--- OUTSIDE RECORDS SUMMARY | 2022-07-31 00:49 | XMS_ITS | Clinical Summary ---
:1955 Author Organization [place] [address] Care Team Providers Name Role Phone Unknown [...] series) Colonoscopy 08/13/2025 08/13/2015, 08/13/2015 Care Teams Social Media Strategist Relationship Specialty Start Date End Date Unknown PCP - General 11/15/19 None
--- OUTSIDE RECORDS SUMMARY | 2022-07-31 00:49 | XMS_ITS | Encounter Summary ---
:1955 Author Organization [facility] Address [address] [place] [address] Care Team Providers Name Role Phone Unavailable Primary Care Provider Unavailable Encounter Details Date Type Department Care Team Description 09/16/2000 Results Only [facility] - Merlene Yost NP conversion [address] [place] [address] Social History Tobacco Use Types Packs/Day Years Used Date Never Assessed Sex Assigned at Date Recorded Not on file documented as of this encounter Plan of Treatment Not on filedocumented as of this encounter Procedures Procedure Name Priority Date/Time Associated Diagnosis Comme nts CYTOPATHOLOGY Routine 09/16/2000 0:00 EST Results for [...] ? SARAH STONE ? Accession #: ? [id number] : ? 1955 (Age: 45) ??F ?Collect Date: ? 12/1999 Location: ? [facility] ? Receive Date : ? 09/17/2000 Provider: ?MERLENE GRANADO SEGMENT ASSEMBLER Copy to: ? Specimen/Source: ?ThinPrep Pap Test, Cervix/ Endocervix Last Menstrual Period: ? 08/19/00 ? SPECIMEN ADEQUACY ? Satisfactory for evaluation. GENERAL CATEGORIZATION ? Within Normal Limits ? Document reviewed and electronically signed by: ? CAROL Rivera(ASCP) ? Report Date: ??09/24/2000 11:15 End of Report Specimen Performing Organization Address City/State/ZIP Code Phon e Number [facility] [address] [place] [address] SERVICES [facility] [address] [place] [address] documented in this encounter Visit Diagnoses Not on filedocumented in this encounter
--- OUTSIDE RECORDS SUMMARY | 2022-07-31 00:49 | XMS_ITS | Encounter Summary ---
:1955 Author Organization [facility] Address [address] [place] [address] Care Team Providers Name Role Phone Unavailable Primary Care Provider Unavailable Encounter Details Date Type Department Care Team Description 03/19/2004 Results Only [facility] - Merlene Yost NP conversion [address] [place] [address] Social History Tobacco Use Types Packs/Day Years [...] ? SARAH STONE ? Accession #: ? [id number] : ? 1955 (Age: 48) ??F ?Collect Date: ? 03/2004 Location: ? [facility] ? Receive Date : ? 03/20/2004 Provider: ?MERLENE GRANADO NEPHROLOGIST Copy to: ? Specimen/Source: ?ThinPrep Pap Test, [...] Organization Address City/State/ZIP Code Phon e Number [facility] [address] [place] [address] SERVICES [facility] [address] [place] [address] documented in this encounter Visit Diagnoses Not on filedocumented in this encounter
--- OUTSIDE RECORDS SUMMARY | 2022-07-31 00:49 | XMS_ITS | Clinical Summary ---
:1955 Author Organization [facility] Address [address] [place] [address] Care Team Providers Name Role Phone Alicia Valentin PA-C Primary Care Provider Encounters Date Type Specialty Care Team Description 05/26/2022 Lab Requisition Clinical Laboratory Hanh Molina nter for other general examina tion from Last 3 Months Social History Tobacco Use Types Packs/Day Years Used Date Never Assessed Sex Assigned at Date Recorded Not on file Plan of Treatment Health Maintenance Due Date Last Done Comments Hepatitis C Screen 1955 COVID-19 Vaccine (#1) 1955 Fall Risk Screening 2019 Procedures Procedure Name Priority Date/Time Associated Diagnosis Comme nts SURGICAL PATHOLOGY Today 05/26/2022 10:40 Encounter for othe r Results for this EDT general examination procedur e are in the results section. from Last 3 Months Results SURGICAL PATHOLOGY (05/26/2022 10:40 EDT) Note to Patient The following [facility] pathology results CENTER have been interpreted LABORATORY by your pathologist SERVICES and may be available to you before your health provider has had the opportunity to review them. Please allow time for your provider to receive these results and explore management options, if applicable. Final Diagnosis A. ENDOMETRIUM, BIOPSY: [facility] MEDICAL - Superficial strips of inactive endometrium with tuba l metaplasia. CENTER - Fragments of benign ectocervical mucosa. LABORATORY SERVICES Attestation There was significant [facility] Electr onically resident/fellow CENTER signed by Lori mott, involvement in the LABORATORY Chelsye Siu MD diagnostic evaluation SERVICES on 05/15 at 1610 of this case. By the signature below, the attending physician certifies that they have personally conducted a gross and/or microscopic examination of the described specimens and rendered or confirmed the above diagnosis. Clinical History Thick endometrium [facility] SERVICES Gross Description A. [facility] Received in formalin frantz d with proper patient identification (initials H, M) and endometrium Bx is an aggregate of braun-white soft tissue fragments (0.5 x 0.5 x 0.1 cm). Entirely submitted in . [facility] ROSEANNA SAWANT 05/27/2022 13:45 SERVICES Resident/Fellow: Shazia Butterfield DO [facility] SERVICES Performing Lab [facility] SERVICES Scanned Images [facility] SERVICES Specimen Tissue - Entire endometrium (body struct ure) Performing Organization Address City/State/ZIP Code Phon e Number [facility] [address] [place] [address] SERVICES from Last 3 Months Insurance Payer Benefit Plan Subscriber ID Effective Phone Address Typ e / Group Dates [facility] [id number] 2021-Pres [phone] MEDICARE MEDICARE HMO ent [phone] [place] [address] Amelie Devries Personal/Family Self 1955 [address] [place] [address] Amelie Devries Personal/Family Self 1955 [address] [place] [address] Care Teams Compressed Air Pile Driver Operator Relationship Specialty Start Date End Date Alicia Valentin, DULCE MARIAC PCP - General 09/05/14
--- OUTSIDE RECORDS SUMMARY | 2022-07-31 00:49 | XMS_ITS | Encounter Summary ---
:1955 Author Organization [facility] Address [address] [place] [address] Care Team Providers Name Role Phone Alicia Valentin PA-C Primary Care Provider Encounter Details Date Type Department Care Team Description 01/07/[address] [facility]- Imelda Unknown, Provider, [facility] [address] [facility] [phone] [place] [address] (Work) [phone] Social History Tobacco Use Types Packs/Day Years Used Date Never Assessed Sex Assigned at Date Recorded Not on file documented as of this encounter Discharge Disposition Disposition Code Departure Means Destination Home or Self Jail documented in this encounter Plan of Treatment Not on filedocumented as of this encounter Visit Diagnoses Not on filedocumented in this encounter Care Teams Sodium Chlorite Operator Relationship Specialty Start Date End Date Alicia Valentin PA-C PCP - General 09/05/14 documented as of this encounter
--- OUTSIDE RECORDS SUMMARY | 2022-07-31 00:49 | XMS_ITS | Encounter Summary ---
:1955 Author Organization [facility] [place] [address] Care Team Providers Name Role Phone Ender Noble Primary Care Provider Encounter Details Date Type Department Care Team Description 08/13/2015 Hospital Encounter Gastroenterology at [facility] Benny Slaughter MD [facility] [place] [address] [facility] Julian Real MD [facility] [place] [address] [place] [address] Social History Tobacco Use Types Packs/Day [...] to be checked. Wednesday-Wednesday Same Day Endo [phone] 7a-8p Otherwise contact [phone] and ask to speak to the director part union organiser Follow up care is a mcintyre part [...] Surgical Pathology Report (08/13/2015 8:18 AM EDT) [facility] Method Time Signature Surgical The signing pathologist has (i) examined the relevant preparation(s) for the [facility] Pathology specimen(s) and (ii) rendered or confirmed the diagnosis(e s). [facility] Report Accession Number: [id number] ?Location: 4 T . ?Surgic al Pathology [...] MD PATHOLOGY/CYTOLOGY ORDERABLE S Performing Organization Address City/[facility]/[place] [address] CERNER MILLENNIUM Specimen to [...] MD PATHOLOGY/CYTOLOGY ORDERABLE S Performing Organization Address City/[facility]/[place] [address] CERNER MILLENNIUM POCT Glucose (08/13/2015 7:38 AM EDT) P athologist Signature POC Glucose 101 65 - 199 CERNER mg/dL [facility] Comment: Supplemental ranges: <140 mg/dL before meals <180 mg/dL all other times of the day Specimen Anatomical Collection Method Collection Time Receive d Time (Source) Location / / Volume Laterality Blood specimen 08/13/2015 7:38 AM 015 7:38 (specimen) EDT AM EDT Julian Palacio MD POINT OF CARE TEST ORDERABLE S Performing Organization Address City/State/[place] [address] CERNER MILLENNIUM COLONOSCOPY (08/13/2015 7:17 AM EDT) Patholo gist Method Time Signature COLONOSCOPY [facility] PROVATION Endoscopy Patient Name: Amelie Devries ? Procedure Date: 08/13/2015 7:17 AM ? Date of : 1955 ? Age: 60 ? Order #: [id number] ? Procedure: ? Colonoscopy Indications: ? Screening [...] Routine documented in this encounter Care Teams Real Estate Valuer Relationship Specialty Start Date End Date Ender Noble PA PCP - General 10/07/10 11/14/[address] [place] [address] documented as of this encounter
--- OUTSIDE RECORDS SUMMARY | 2022-07-31 00:49 | XMS_ITS | Encounter Summary ---
:1955 Author Organization [facility] Address [address] [place] [address] Care Team Providers Name Role Phone Alicia Valentin PA-C Primary Care Provider Encounter Details Date Type Department Care Team Description 08/28/2015 Results Only [facility] Sabrina Singleton MD [phone] [place] [address] Social History Tobacco Use Types Packs/Day Years [...] (08/28/2015 0:00 EDT) Pathology Report: CYTOPATHOLOGY REPORT [facility] Reports generated via electronic interface contain lulu ginal data; SERVICES however they are lacking the format of the original re port. Caution should be taken when reading/interpreting unfo rmatted reports. Name: ? SARAH STONE ? Accession #: ? [id number] ? : ? 1955 (Age: 5 1) [...] and electronically signed by: ? Evelia Waters, CAROL(ASCP) ? Report ??Date: 09/04/2015 10:19 HPV with Pap Test ? Date Ordered: ? 09/04/2015 ? Status: ?? Signed Out ?Date Complete: ? 09/13/2015 ? By: ??S ystem Interface ? Date Reported: ? 09/13/2015 ? Interpretation RESULT: Negative for HPV. No E6 or E7 mRNA is detected from HPV types 16,18,31,3 3,35, 39,45,51,52,56,58,59,66, and 68 by bone plant supervisor media marisol amplification. Comments Document reviewed and [...] e Number [facility] [address] [place] [address] SERVICES documented in this encounter Visit Diagnoses Not on filedocumented in this encounter Care Teams Rocket Engine Mechanic Relationship Specialty Start Date End Date Alicia Valentin, PAKristelC PCP - General 09/05/14 documented as of this encounter
--- OUTSIDE RECORDS SUMMARY | 2022-07-31 00:49 | XMS_ITS | Encounter Summary ---
:1955 Author Organization [facility] Address [address] [place] [address] Care Team Providers Name Role Phone Alicia Valentin PA-C Primary Care Provider Encounter Details Date Type Department Care Team Description 04/29/2020 Lab Requisition [facility] Outr Resulting Lab, Pathology & Laboratory Provider [facility] [address] [place] [address] Social History Tobacco Use Types [...] (04/29/2020 10:35 EDT) COVID-19 rt-PCR NEGATIVE Negative [facility] Result Comment: LABORATORY 2019-novel Coronavirus [...] Address City/State/ZIP Code Phon e Number [facility] [place], [place] COVID-19 TESTING (04/29/2020 10:35 EDT) COVID-19 rt-PCR NEGATIVE Negative [facility] Result Comment: LABORATORY 2019-novel Coronavirus (2019 -nCoV) [...] Administration's Emergency Use Authorization. Performing Lab [facility] LABORATORY SERVICES Specimen Swab - Entire nasopharynx (body structur e) Performing Organization Address City/State/[facility] Code Phon e Number [facility] [address] [place] [address] SERVICES [facility] [place], [place] documented in this encounter Visit Diagnoses Not on filedocumented in this encounter Care Teams Marine Welder Relationship Specialty Start Date End Date Alicia Valentin PA-C PCP - General 09/05/14 documented as of this encounter
--- OUTSIDE RECORDS SUMMARY | 2022-07-31 00:49 | XMS_ITS | Encounter Summary ---
:1955 Author Organization [facility] Address [facility] [place] [address] Care Team Providers Name Role Phone Ender Noble Primary Care Provider Encounter Details Date Type Department Care Team Description 08/13/2015 Surgery G[facility]ology at [facility] Julian Palacio, COLONOSCOPY FLEXIBLE, [facility] Mona valdes MD WITH BX (WRVU 3.66) [place] [address] [facility] [phone] GASTROENTEROLOGY DEPT. [place], [place] [address] Social History Tobacco Use Types [...] to be checked. Wednesday-Wednesday Same Day Endo [phone] 7a-8p Otherwise contact [phone] and ask to speak to the publicist metal bonder Follow up care is a mcintyre part [...] Surgical Pathology Report (08/13/2015 8:18 AM EDT) [facility] Method Time Signature Surgical The signing pathologist has (i) examined the relevant preparation(s) for the [facility] Pathology specimen(s) and (ii) rendered or confirmed the diagnosis(e s). [facility] Report Accession Number: [id number] ?Location: 4 T . ?Surgic al Pathology [...] Organization Address City/State/ZIP Code Phon e Number [address] [facility] Specimen to Pathology (surgical or derm) (08/13/2015 8:18 AM EDT) Specimen Anatomical Collection Method Collection Time Receive d Time (Source) Location / / Volume Laterality AP Specimen 08/13/2015 8:18 AM 201 5 8:18 EDT AM EDT Narrative CERNER MILLENNIUM - 08/13/2015 8:18 AM E DT Specimen requisition ordered. ??Separate Pathology report to follow Julian Palacio MD PATHOLOGY/CYTOLOGY ORDERABLE S Performing Organization Address City/[facility]/ZIP Code Phon e Number [address] [facility] POCT Glucose (08/13/2015 7:38 AM EDT) P athologist Signature POC Glucose 101 65 - 199 CERNER mg/dL [facility] Comment: Supplemental ranges: <140 mg/dL before meals <180 mg/dL all other times of the day Specimen Anatomical Collection Method Collection Time Receive d Time (Source) Location / / Volume Laterality Blood specimen 08/13/2015 7:38 AM 015 7:38 (specimen) EDT AM EDT Julian Palacio MD POINT OF CARE TEST ORDERABLE S Performing Organization Address City/[facility]/ZIP Code Phon e Number [address] CERATA LOPEZENNIUM COLONOSCOPY (08/13/2015 7:17 AM EDT) Patholo gist Method Time Signature COLONOSCOPY [facility] PROVATION Endoscopy Patient Name: Amelie Devries ? Procedure Date: 08/13/2015 7:17 AM ? Date of : 1955 ? Age: 60 ? Order #: [id number] ? Procedure: ? Colonoscopy Indications: ? Screening [...] Routine documented in this encounter Care Teams Watch Hairspring Assembler Relationship Specialty Start Date End Date Ender Noble PA PCP - General 10/07/10 11/14/[address] [place] [address] documented as of this encounter
--- OUTSIDE RECORDS SUMMARY | 2022-07-31 00:49 | XMS_ITS | Encounter Summary ---
:1955 Author Organization [facility] Address [address] [place] [address] Care Team Providers Name Role Phone Gudelia Valentin PA-C Primary Care Provider Encounter Details Date Type Department Care Team Description 02/16/2019 Results Only [facility] John Centeno, MANAGER OFFICE [phone] [facility] [facility] [place] [address] Social History Tobacco Use Types Packs/Day Years Used Date Never Assessed Sex Assigned at Date Recorded Not on file documented as of this encounter Plan of Treatment Not on filedocumented as of this encounter Procedures Procedure Name Priority Date/Time Associated Diagnosis Comme nts PAP TEST- RESULT Routine 02/16/2019 0:00 EDT Resu lts for this ONLY procedure are i n the results section. documented in this encounter Results PAP TEST- RESULT ONLY (02/16/2019 0:00 EDT) Pathology Report: CYTOPATHOLOGY REPORT [facility] Reports generated via electronic interface contain lulu ginal data; SERVICES however they are lacking the format of the original re port. Caution should be taken when reading/interpreting unfo rmatted reports. Name: ? SARAH STONE ? Accession #: ? [id number] ? : ? 1955 (Age: 5 4) ??F ?Collect Date: ? 2018 ? Location: ? [facility] ? Receive Date: ? 9 ? Provider: JOHN WILSON MANAGER OFFICE Copy to: GUDELIA MARKS ? Final Report SPECIMEN ADEQUACY ? Satisfactory for Evaluation - transformation zone component present GENERAL CATEGORIZATION ? Negative for Intraepithelial Lesion or Malignan cy ?? Menstrual/ Status: ??Post Menopausal Specimen/Source: ??Pap Test, Cervix, ThinPrep Imaging System with manual evaluation Document reviewed and electronically signed by: ? CAROL Martinez(ASCP) ? Report ??Date: 02/21/2019 14:43 HPV with Pap Test ? Date Ordered: ? 02/21/2019 ? Status: ?? S igned Out ?Date Complete: ? 02/22/2019 ? By: ??Sy stem Interface ? Date Reported: ? 02/22/2019 ? Interpretation RESULT: Negative for HPV. No E6 or E7 mRNA is detected from HPV types 16,18,31,3 3,35, 39,45,51,52,56,58,59,66, and 68 by woven wood shade assembler media marisol amplification. Comments Document reviewed and electronically signed by: ? System Interface ? Report date: 02/22/2019 By the signature above, the attending physician certif ies that he/she has personally conducted a gross and/or microscopic examin ation of the described specimens and rendered or confirmed the above diagnosi s. End of Report Specimen Performing Organization Address City/State/ZIP Code Phon e Number [facility] [address] [place] [address] SERVICES documented in this encounter Visit Diagnoses Not on filedocumented in this encounter Care Teams Precision Assembler Bench Relationship Specialty Start Date End Date Gudelia Valentin PA-C PCP - General 09/05/14 documented as of this encounter
--- OUTSIDE RECORDS SUMMARY | 2022-07-31 00:49 | XMS_ITS | Encounter Summary ---
:1955 Author Organization Health system Address [address] [place] [address] Care Team Providers Name Role Phone Unavailable Primary Care Provider Unavailable Encounter Details Date Type Department Care Team Description 10/19/2002 Results Only [facility] - Merlene Yost NP conversion [address] [place] [address] Social History Tobacco Use Types Packs/Day Years Used Date Never Assessed Sex Assigned at Date Recorded Not on file documented as of this encounter Plan of Treatment Not on filedocumented as of this encounter Procedures Procedure Name Priority Date/Time Associated Diagnosis Comme nts CYTOPATHOLOGY Routine 10/19/2002 0:00 EST Results for [...] ? SARAH STONE ? Accession #: ? [id number] : ? 1955 (Age: 47) ??F ?Collect Date: ? 03/2002 Location: ? [facility] ? Receive Date : ? 10/23/2002 Provider: ?MERLENE GRANADO HELICOPTER PILOT INSTRUCTOR Copy to: ? Specimen/Source: ?ThinPrep Pap Test, [...] Organization Address City/State/ZIP Code Phon e Number [facility] [address] [place] [address] SERVICES [facility] [address] [place] [address] documented in this encounter Visit Diagnoses Not on filedocumented in this encounter
--- OUTSIDE RECORDS SUMMARY | 2022-07-31 00:49 | XMS_ITS | Encounter Summary ---
:1955 Author Organization [facility] Address [address] [place] [address] Care Team Providers Name Role Phone Gudelia Valentin PA-C Primary Care Provider Encounter Details Date Type Department Care Team Description 11/21/2014 Results Only [facility] Sabrina Singleton MD [phone] [place] [address] Social History Tobacco Use Types Packs/Day Years Used Date Never Assessed Sex Assigned at Date Recorded Not on file documented as of this encounter Plan of Treatment Not on filedocumented as of this encounter Procedures Procedure Name Priority Date/Time Associated Diagnosis Comme [facility] SURGICAL PATHOLOGY Routine 11/21/2014 18:26 Resul ts for this EST procedure are i n the results section. documented in this encounter Results SURGICAL PATHOLOGY (11/21/2014 18:26 EST) Pathology SURGICAL PATHOLOGY REPORT [facility] MEDICAL Report: Reports generated via electronic interface [...] endometrium with tubal metaplasia . Comment: ? Tactical/Mobile Watch Officer sectio ns of this case were reviewed [...] Organization Address City/State/ZIP Code Phon e Number [facility] [address] [place] [address] SERVICES documented in this encounter Visit Diagnoses Not on filedocumented in this encounter Care Teams Cartography Professor Relationship Specialty Start Date End Date Gudelia Valentin PA-C PCP - General 09/05/14 documented as of this encounter
--- OUTSIDE RECORDS SUMMARY | 2022-07-31 00:49 | XMS_ITS | Encounter Summary ---
:1955 Author Organization [facility] Address [address] [place] [address] Care Team Providers Name Role Phone Unavailable Primary Care Provider Unavailable Encounter Details Date Type Department Care Team Description 10/13/2001 Results Only [facility] - Merlene Yost NP conversion [address] [place] [address] Social History Tobacco Use Types Packs/Day Years Used Date Never Assessed Sex Assigned at Date Recorded Not on file documented as of this encounter Plan of Treatment Not on filedocumented as of this encounter Procedures Procedure Name Priority Date/Time Associated Diagnosis Comme nts CYTOPATHOLOGY Routine 10/13/2001 0:00 EST Results for [...] ? SARAH STONE ? Accession #: ? [id number] : ? 1955 (Age: 46) ??F ?Collect Date: ? 09/16 Location: ? [facility] ? Receive Date : ? 10/17/2001 Provider: ?MERLENE GRANADO HOLDER PILE DRIVING Copy to: ? Specimen/Source: ?ThinPrep Pap Test, Cervix/ Endocervix Last Menstrual Period: ? Other: ? Additional clinical information: Lichen sclerosis and atrophy. ? SPECIMEN ADEQUACY ? Satisfactory for evaluation. GENERAL CATEGORIZATION ? Within Normal Limits ? Document reviewed and electronically signed by: ? CAROL Mcrae(ASCP) ? Report Date: ??10/20/2001 07:46 End of Report Specimen Performing Organization Address City/State/ZIP Code Phon e Number [facility] [address] [place] [address] SERVICES [facility] [address] [place] [address] documented in this encounter Visit Diagnoses Not on filedocumented in this encounter
--- OUTSIDE RECORDS SUMMARY | 2022-07-31 00:49 | XMS_ITS | Encounter Summary ---
:1955 Author Organization [facility] Address [address] [place] [address] Care Team Providers Name Role Phone Unavailable Primary Care Provider Unavailable Encounter Details Date Type Department Care Team Description 08/31/2007 Results Only [facility] - Merlene Yost NP conversion [address] [place] [address] Social History Tobacco Use Types Packs/Day Years Used Date Never Assessed Sex Assigned at Date Recorded Not on file documented as of this encounter Plan of Treatment Not on filedocumented as of this encounter Procedures Procedure Name Priority Date/Time Associated Diagnosis Comme nts CYTOPATHOLOGY Routine 08/31/2007 0:00 EDT Results for [...] ? SARAH STONE ? Accession #: ? [id number] : ? 1955 (Age: 52) ??F ?Collect Date: ? 08/15 Location: ? [facility] ? Receive Date : ? 09/01/2007 Provider: ?MERLENE GRANADO ADDRESS CHANGE CLERK Copy to: ? Specimen/Source: ? ThinPrep Pap Test, Cervix/Endocervix, processed on [employer] ThinPrep Imaging System, with manual evaluation Last [...] City/State/ZIP Code Phon e Number [facility] [address] [place] [address] SERVICES [facility] [address] [place] [address] documented in this encounter Visit Diagnoses Not on filedocumented in this encounter
--- OUTSIDE RECORDS SUMMARY | 2022-07-31 00:49 | XMS_ITS | Encounter Summary ---
:1955 Author Organization [facility] Address [address] [place] [address] Care Team Providers Name Role Phone Unavailable Primary Care Provider Unavailable Encounter Details Date Type Department Care Team Description 11/23/2007 Results Only [facility] - Merlene Yost NP conversion [address] [place] [address] Social History Tobacco Use Types Packs/Day Years Used Date Never Assessed Sex Assigned at Date Recorded Not on file documented as of this encounter Plan of Treatment Not on filedocumented as of this encounter Procedures Procedure Name Priority Date/Time Associated Diagnosis Comme nts SURGICAL PATHOLOGY Routine 11/23/2007 0:00 EST Re [...] Date: ? 008 ? Provider: MERLENE GRANADO FELT PULLER Copy to: ? Final Pathologic Diagnosis: ? [...] Gross Description: ? Received [facility] formalin [facility] and endometrial bx is 1 cc of blood tinged mucus admixed w ith fragments of red-brown tissue. ??The specimen is submitted intact in one cassette. ??(Caleb You/ [facility] End of Report Specimen Performing Organization Address City/State/ZIP Code Phon e Number [facility] [address] [place] [address] SERVICES [facility] [address] [place] [address] documented in this encounter Visit Diagnoses Not on filedocumented in this encounter
--- OUTSIDE RECORDS SUMMARY | 2022-07-31 00:49 | XMS_ITS | Encounter Summary ---
:1955 Author Organization [facility] Address [address] [place] [address] Care Team Providers Name Role Phone Alicia Valentin PA-C Primary Care Provider Encounter Details Date Type Department Care Team Description 01/07/2017 Results Only [facility] Sabrina Singleton MD [phone] [place] [address] Social History Tobacco Use Types Packs/Day Years Used Date Never Assessed Sex Assigned at Date Recorded Not on file documented as of this encounter Plan of Treatment Not on filedocumented as of this encounter Procedures Procedure Name Priority Date/Time Associated Diagnosis Comme [facility] SURGICAL PATHOLOGY Routine 01/07/2017 9:02 EST Re sults for this procedure are i n the results section. documented in this encounter Results SURGICAL PATHOLOGY (01/07/2017 9:02 EST) Pathology Report: SURGICAL PATHOLOGY REPORT [facility] Reports generated via electronic interface conta in original data; [facility] however they are lacking the format of the original re port. SERVICES Caution should be taken when reading/interpreting unfo rmatted reports. Name: ? SARAH STONE ? Accession #: ? [id number] ? : ? 1955 (Age: [age]) ??F ? Collect Date: ? 01/07/2017 ? Location: ? [facility] ? Receive Date: ? 01/08/20 17 ? Provider: SABRINA SINGLETON MD Copy to: RICKI Chu DUNIAVlad NURSING ASSOCIATE ? Final Pathologic Diagnosis: SKIN OF BREAST, [...] superficia l nature of the biopsy. (Dr. 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
--- NOTE | 2022-07-31 13:30 | DI.DEXA_ITS ---
Exam(s) XR DEXA BONE DENSITY W/WO CT EXAM: XR DEXA BONE DENSITY W/WO CT CLINICAL HISTORY: POSTMENOPAUSAL, Z78.0; HYPOTHYROIDISM, E03.9 TECHNIQUE: Routine DEXA evaluation of the lumbar spine, hip, or forearm. COMPARISON: CR LUMBAR SPINE COMPLETE from 01/13/2013 FINDINGS: Performed on a Hologic unit. Lateral image: No compression fracture evident. Lumbar Spine total T-score: 1.3 Hip total T-score:1.1 Independent reading at the level of the femoral neck yields at T-score of 0.1. Forearm total T-score: -0.1 IMPRESSION: Bone mineral density measures in the normal range. Fracture risk is low. Note: Any spine fracture indicates 5x risk for subsequent spine fracture and 2x risk for subsequent h ip fracture. World Health Organization criteria for BMD interpretation classify patients: Normal...... T- Score at or above -1.0 Osteopenic... T- Score between -1.0 and -2.5 Osteoporosis... T-Score at or below -2.5
== END ==
PROVIDERS: Visit Provider Nurse Practitioner Family
DX: Z78.0 Asymptomatic menopausal state (principal); Z13.820 Encounter for screening for osteoporosis; M85.88 Other specified disorders of bone density and structure, other site
CPT/HCPCS: 77080

== ENCOUNTER 2023-05-05 10:44 | Outpatient (REF) | payer OTHER, SELFPAY ==
[2023-05-05 20:21] LABS: ALT 48 U/L (14-59); AST 28 U/L (15-37); Albumin 3.7 g/dL (3.4-5.0); Alkaline Phosphatase 119 U/L (46-116); Anion Gap 8.6 mmol/L (3-11); BUN 15 mg/dL (7-18); Bilirubin, Total 0.3 mg/dL (0.2-1.0); CO2 26.4 mmol/L (21.0-32.0); CREATININE 0.8 mg/dL (0.55-1.02); Calcium 9.8 mg/dL (8.5-10.1); Chloride 103 mmol/L (98-107); Estimated GFR 80.21 (mL/min/1.73m2); Glucose 118 mg/dL (74-106); Potassium 4.1 mmol/L (3.5-5.1); Sodium 138 mmol/L (136-145); TSH 1.94 uIU/mL (0.36-3.74); Total Protein 8.1 g/dL (6.4-8.2)
== END 2023-05-05 10:45 | disposition home or self-care (01) ==
LOC: NCHCN 10:44
PROVIDERS: PCP Nurse Practitioner Family; Visit Provider Nurse Practitioner Family
DX: R73.03 Prediabetes (principal); E03.9 Hypothyroidism, unspecified; E78.5 Hyperlipidemia, unspecified
CPT/HCPCS: 80053; 84443

== ENCOUNTER 2023-11-01 16:00 | Outpatient (REF) | payer OTHER, SELFPAY ==
[2023-11-01 20:05] LABS: Anion Gap 7.9 mmol/L (3-11); BUN 17 mg/dL (7-18); CO2 26.1 mmol/L (21.0-32.0); CREATININE 0.8 mg/dL (0.55-1.02); Calcium 9.7 mg/dL (8.5-10.1); Chloride 103 mmol/L (98-107); Estimated GFR 79.71 (mL/min/1.73m2); Glucose 125 mg/dL (74-106); Potassium 4.1 mmol/L (3.5-5.1); Sodium 137 mmol/L (136-145)
[2023-11-01 20:10] LABS: Hemoglobin A1C 5.6 % (<5.7)
== END 2023-11-01 16:01 | disposition home or self-care (01) ==
LOC: NCHCN 16:00
PROVIDERS: PCP Nurse Practitioner Family; Visit Provider Nurse Practitioner Family
DX: R73.03 Prediabetes (principal); E03.9 Hypothyroidism, unspecified; E78.5 Hyperlipidemia, unspecified
CPT/HCPCS: 80048; 83036

== ENCOUNTER 2024-05-01 10:41 | Outpatient (REF) | payer OTHER, SELFPAY ==
--- OUTSIDE RECORDS SUMMARY | 2024-05-01 10:43 | XMS_ITS | Continuity of Care Document ---
Author Name Unknown Organization [facility] Address [address] [place] [address] Care Team Providers Care Box Sealing Machine Catcher Name Role Phone Danica Smallwood Primary Care Physician Encounter [facility] Date(s): 11/25/23 - 11/25/[address] [phone] [place] Encounter Diagnosis Localized swelling, mass or lump of neck(Discharge Diagnosis) - 11/25/23 Discharge Disposition: Home or Self Care Attending Physician: Danica Smallwood MOTORCYCLE SALES ASSOCIATE Admitting Physician: Danica Smallwood MOTORCYCLE SALES ASSOCIATE Referring Physician: Danica Smallwood MOTORCYCLE SALES ASSOCIATE Allergies, Adverse Reactions, Alerts Substance Reaction Severity Status codeine Unknown Active Social History Social History Type Response Sex Female Patient Care team information Care Team Personnel Name: Danica Smallwood MOTORCYCLE SALES ASSOCIATE Position: PowerChart View Only Member Role: Primary Care Physician Address: Address: [address] [place] [address]
[2024-05-01 20:41] LABS: TSH 1.67 uIU/Ml (0.36-3.74)
== END 2024-05-01 10:42 | disposition home or self-care (01) ==
LOC: NCHCN 10:41
PROVIDERS: PCP Nurse Practitioner Family; Visit Provider Nurse Practitioner Family
DX: E03.9 Hypothyroidism, unspecified (principal)
CPT/HCPCS: 84443

== ENCOUNTER 2024-09-21 11:52 | Outpatient (REF) | payer OTHER, SELFPAY ==
[2024-09-21 19:03] LABS: Abs Immature Grans 0.03 10^3/uL (0.0-0.06); Absolute Basophil Count 0.04 10^3/uL (0.0-0.2); Absolute Eosinophil Count 0.33 10^3/uL (0.0-0.7); Absolute Lymphocyte Count 2.15 10^3/uL (1.2-3.4); Absolute Monocyte Count 0.61 10^3/uL (0.1-0.8); Basophils % 0.5 %; HCT 37.4 % (36.0-46.0); HGB 12.5 g/dL (11.2-15.7); Immature Grans % 0.4 %; MCH 29.8 pg (27.0-33.0); MCHC 33.4 % (32.0-36.0); MCV 89 fL (80-95); MPV 9.9 fL (8.0-11.0); Monocytes % 7.4 %; Neutrophils % 61.7 %; Platelet Count 222 10^3/uL (130-400); RBC 4.19 10^6/uL (3.93-5.22); RDW 13.7 % (11.7-14.6); RDW-SD 45.1 fL; WBC 8.26 10^3/uL (4.4-10.8)
[2024-09-21 19:14] LABS: ALT 33 U/L (14-59); AST 22 U/L (15-37); Albumin 3.4 g/dL (3.4-5.0); Alkaline Phosphatase 137 U/L (46-116); Anion Gap 10.1 mmol/L (3-11); BUN 15 mg/dL (7-18); Bilirubin, Total 0.35 mg/dL (0.2-1.0); CO2 24.9 mmol/L (21.0-32.0); CREATININE 0.9 mg/dL (0.55-1.02); Calcium 9.3 mg/dL (8.5-10.1); Chloride 106 mmol/L (98-107); Estimated GFR 68.77 (mL/min/1.73m2); Glucose 145 mg/dL (74-106); Potassium 3.9 mmol/L (3.5-5.1); Sodium 141 mmol/L (136-145); Total Protein 7.6 g/dL (6.4-8.2)
== END 2024-09-21 11:53 | disposition home or self-care (01) ==
LOC: NCHCN 11:52
PROVIDERS: PCP Nurse Practitioner Family; Visit Provider Physician Assistant
DX: Z01.818 Encounter for other preprocedural examination (principal)
CPT/HCPCS: 80053; 85025

== ENCOUNTER 2024-12-07 02:40 | Outpatient (CLI) | payer BC, SELFPAY ==
--- NOTE | 2024-12-07 12:35 | DI.MAMMO_ITS ---
Exam(s) MAMMO SCREENING EXAM: MAMMO SCREENING CLINICAL HISTORY: screening. TECHNIQUE: Bilateral full field digital CC and MLO mammographic images were obtained with 3D tomosyn thesis and utilizing computer aided detection (CAD). COMPARISON: Prior mammograms were reviewed. FINDINGS: There has been no significant change in the appearance and distribution of the fibroglandular tissue. There are no new spiculated masses nor malignant appearing microcalcification groups. There is no significant architectural distortion nor skin thickening-retraction. IMPRESSION: No radiographic evidence of malignancy. BI-RADS Category 1 - Negative Breast Density - Category B - Scattered areas of fibroglandular density Breast density Category C or D implies that the patient has dense breast tissue. Dense breast tissue can make it harder to find cancer on a mammogram. Dense breast tissue is also associated with an incr eased risk of breast cancer. This information about the result of the mammogram report was provided to the patient to raise their awareness. Use this report when you speak with the patient about their risks for breast cancer, which includes their family history. At that time, you may recommend additional screening tests (Ultrasoun d or MRI) as these tests may add significant information. A negative radiographic report should not delay biopsy if a dominant or clinically suspicious mass is present. Up to ten percent of cancers are not identified on mammography. A negative report may reinforce clinical impression. Adenosis and dense breasts may obscure an underlying neoplasm. False positive reports average 6 to 10%. Patient will receive a letter notifying them of these results.
== END 2024-12-07 03:00 ==
LOC: DI 02:41
PROVIDERS: PCP Nurse Practitioner Family; Visit Provider Nurse Practitioner Women's Health
DX: Z12.31 Encounter for screening mammogram for malignant neoplasm of breast (principal); R92.323 Mammographic fibroglandular density, bilateral breasts
CPT/HCPCS: 77063; 77067

== ENCOUNTER 2025-10-02 11:10 | Outpatient (REF) | payer BC, SELFPAY ==
[2025-10-02 19:46] LABS: HCT 38.2 % (36.0-46.0); HGB 12.7 g/dL (11.2-15.7); MCH 29.4 pg (27.0-33.0); MCHC 33.2 % (32.0-36.0); MCV 88 fL (80-95); MPV 10.8 fL (8.0-11.0); Platelet Count 254 10^3/uL (130-400); RBC 4.32 10^6/uL (3.93-5.22); RDW 13.8 % (11.7-14.6); RDW-SD 44.6 fL; WBC 9.42 10^3/uL (4.4-10.8)
[2025-10-02 20:06] LABS: TSH 2.10 uIU/mL (0.55-4.78)
[2025-10-02 20:09] LABS: ALT 34 U/L (10-49); AST 27 U/L (<34); Albumin 4.4 g/dL (3.4-5.0); Alkaline Phosphatase 120 U/L (46-116); Anion Gap 8.9 mmol/L (3-11); BUN 18 mg/dL (9-23); Bilirubin, Total 0.40 mg/dL (0.2-1.2); CO2 22.1 mmol/L (20.0-31.0); Calcium 9.3 mg/dL (8.3-10.6); Chloride 107 mmol/L (98-107); Glucose 106 mg/dL (74-106); Potassium 4.0 mmol/L (3.5-5.1); Sodium 138 mmol/L (136-145); Total Protein 7.6 g/dL (5.7-8.2)
== END 2025-10-02 11:11 | disposition home or self-care (01) ==
LOC: NCHCN 11:10
PROVIDERS: PCP Nurse Practitioner Family; Visit Provider Nurse Practitioner Family
DX: E03.9 Hypothyroidism, unspecified (principal); E78.5 Hyperlipidemia, unspecified; Z68.35 Body mass index [BMI] 35.0-35.9, adult
CPT/HCPCS: 80053; 85027; 84443